=== PATIENT | female | born 1945 | race Caucasian/White ===

== ENCOUNTER → 2024-03-27 | Outpatient (CLI) | payer MEDICARE, SELFPAY ==
--- NOTE | 2024-03-27 | IMM_PTH ---
PATIENT: LYSSA THORNE LOC: [facility] U#:[id number] AGE/SX: 79/F ROOM: RE03/27/[address]: Dr. Clif Mena MD : 1945 BED: DIS: 03/27/2024 SPEC #: [id number] RECD: 04/01/24 09:28 STATUS: CLIF REQ #: [id number] CHANTELL: 03/27/24 00:[address]: Clif Mena DEPT: IMMUNOHISTOCHEMISTRY RECD BY: Perry Morales ENTERED: 04/01/24 09:30 SP TYPE: IMMUNO OTHR DR: Dr. Caden Lake MD Tissues: Left breast, NOS Procedures: CALPONIN-1 (add) CK5-6 (add) CK8 (add) E-CAD (add) HER2 MARIAELENA (add) KI-67 (add) P53 (add) WY (add) P40 (add) MOC-31 (add) ER (initial) PHYSICIAN & [address] [address] SPECIMEN INFORMATION: Tissue Source: Left breast tissue Clinical Info: Left breast mass Specimen Number: [id number] CPT code: 54171,53105f3,72877c8 METHODOLOGY: Deparaffinized sections of prefer/formalin-fixed tissue or PAP/DQ stained slides are incubated with monoclonal/polyclonal antibodies/oligonucleotide probes. Localization is made via biotin free immunoperoxidase method. Appropriate controls are performed and reacted as expected. Results on target cell population are indicated in the following table: RESULTS: ANTIBODY / CLONE RESULT P53 (DO-7) negative, null pattern Ki-67 (30-9) positive, low ~10% CK8 (96qtaoX44) positive CK5-6 (D5 & 1684) negative Calponin-1 (RD801Z) negative P40 (BC28) negative E-Cad (ECH-6) negative MOC-31 (4561) positive, weak MORPHOMETRIC ANALYSIS ER (clone 6F11) >95%, strong intensity WY (clone 16/1E2) >95%, strong intensity Her-2Neu (clone CB11) 2+ The test for HER 2 is performed on formalin-fixed paraffin embedded tissue using the CB11 mouse monoclonal antibody ([employer] [employer]). A 3+ staining pattern is interpreted as positive and is defined as a strong membranous staining involving the entire cell membrane in over 30% of invasive tumor cells. A similar weak staining pattern (2+) involving 10% of the tumor cells is interpreted as equivocal. HER 2 follow-up testing by FISH is recommended for all equivocal results. Reference: [place] [employer] of Clinical Oncology and the College of [place] [employer] (J. Clin. Oncol. 23: 118-145, 2007). Fixative Used: Formalin; Duration of Fixation: 9 Hrs; Sample Adequate: Yes INTERPRETATION: Left breast tissue, biopsy: Invasive lobular carcinoma, Provisional grade 1. Positive for estrogen receptors (favorable prognostic indicator). Positive for progesterone receptors (favorable prognostic indicator). Equivocal for overexpression of MRH1xmg. SJ/mr 04/01/2024 ADDENDUM ADDENDUM ADDENDUM ADDENDUM ADDENDUM ADDENDUM ADDENDUM ADDENDUM ADDENDUM ADDENDUM ADDENDUM ADDENDUM ADDENDUM ADDENDUM ADDENDUM ADDENDUM ADDENDUM ADDENDUM ADDENDUM ADDENDUM ADDENDUM 04/03/2024 14:16 ADDENDUM 04/03/2024 14:16 ADDENDUM 04/03/2024 14:16 ADDENDUM 04/03/2024 14:16 ADDENDUM 04/03/2024 14:16 IN SITU HYBRIDIZATION (LON) FOR HER2 Interpretation: Negative / Not Amplified HER2 : CEP-17 Ratio: 0.77 Average HER2 Signal: 1.9 Average CEP-17 Signal: 2.45 Number of Tumor Cells Scanned: 50 Interpretative Information: The INFORM HER2 Dual LON DNA Probe Cocktail assay is performed on formalin-fixed paraffin embedded tissue and determines HER2 gene status by detecting HER2 copies via silver in situ hybridization (SISH) and Chromosome 17 copies via chromogenic red in situ hybridization on tumor cells. A minimum of 20 cells representing > 10% of contiguous and homogeneous invasive tumor cells were analyzed. HER2 gene status is classified as Non-amplified (HER2/Chr17 ratio < 2.0) or Amplified (HER2/Chr17 ratio greater than or equal to 2.0). If the resulting HER2/Chr17 ratio falls within 1.8 - 2.2 (Borderline), retesting by FISH is recommended. Reference: Mike AC, Nancy GARCIA, Breann DG, et al: Recommendations for Human Epidermal Growth Factor Receptor 2 Testing in Breast Cancer: [place] Society of Clinical Oncology / College of [place] Clinical Practice Guideline Update. J Clin Oncol 31:1411-1940, 2013.
--- NOTE | 2024-03-27 10:30 | BRBX_PTH ---
PATIENT: LYSSA THORNE [facility] U[facility][id number] AGE/SX: 79/F ROOM: RE03/27/[address]: Dr. Clif Mena MD : 1945 BED: DIS: 03/27/2024 SPEC #: [id number] RECD: 03/27/24 11:05 STATUS: CLIF SEAMAN #: [id number] CHANTELL: 03/27/24 10:[address]: Clif Mena DEPT: SURGICAL PATHOLOGY RECD BY: Jazmín York ENTERED: 03/27/24 11:24 SP TYPE: BREAST BX OTHR DR: Dr. Caden Lake MD Tissues: Left breast, NOS Procedures: Surgery Specimen Level IV HEADER OPERATION: Left breast biopsy PRE-OP DIAGNOSIS: Left breast mass TISSUE SUBMITTED: Left breast tissue Ischemic Time: 1 minute Fixation Time: 9 hours MICROSCOPIC DIAGNOSIS Left breast, core biopsy: Invasive lobular carcinoma. See synoptic report below. AM/mr 03/29/2024 COMMENT Immunohistochemistry ([id number]) supports the above diagnosis. INVASIVE BREAST CANCER SUMMARY: Procedure: Needle core biopsy Specimen Laterality: left breast Tumor site: Left breast Histologic type: Invasive lobular carcinoma Provisional Histologic grade: 1 Tubule Differentiation Score: 3 Nuclear Pleomorphism Score: 1 Mitotic Rate Score: 1 Tumor Size ( greatest dimension): 9.5mm Ductal Carcinoma Insitu: Not identified Angiolymphatic Invasion: Not identified Microcalcifications: Not present Additional Findings: Minimal chronic inflammation Breast Marker Study: [id number] ER: positive (>95%, strong intensity). KY: positive (>95%, strong intensity). Her2: Equivocal (2+) Ki67: positive, low, ~10% [id number]: pending The above summary is in compliance with College of [place] Path[employer] (CAP) Cancer Protocols Checklist and [place] Joint Committee on Cancer (AJCC), Staging Manual, 8th Ed. Case has been reviewed in consultation with Dr. Sim who concurs with the above diagnosis. IDC:SJ MICROSCOPIC DESCRIPTION Slides are reviewed. GROSS DESCRIPTION Received in fixative is one container labeled with the patient's name and designated Left breast mass tissue. The specimen consists of multiple elongated fragments of jordan-yellow fibroadipose tissue that in aggregate measure 1.5 x 0.5 x 0.1 cm. The specimen is totally submitted in one cassette. Nahun 03/27/2024 TC:0 CPT:58959
== END | disposition home or self-care (01) ==
PROVIDERS: PCP Family Medicine; Referring Provider Surgery; Visit Provider Surgery
DX: N63.20 Unspecified lump in the left breast, unspecified quadrant (principal)
CPT/HCPCS: 81002; 88305; 88341; 88342

== ENCOUNTER → 2024-04-19 | Outpatient (CLI) | payer MEDICARE, SELFPAY ==
--- NOTE | 2024-04-19 13:14 | MRI_ITS ---
STUDY: BILATERAL BREAST MR WITHOUT AND WITH CONTRAST REASON FOR EXAM: Female, 79 years old. Lobular breast cancer. TECHNIQUE: Multi-sequence multi-echo imaging of both breasts was performed with a dedicated breast coil. T1-weighted and T2-weighted images were performed before the administration of contrast. T1-weighted images were also performed after the intravenous administration of 25 cc of Clariscan contrast. COMPARISON: Left breast ultrasound dated 03/14/2024 and bilateral diagnostic mammogram dated February 29, 2024 FINDINGS: RIGHT BREAST: Fatty replaced breast with minimal background enhancement. No abnormal enhancing masses or areas of non-mass enhancement in the right breast. LEFT BREAST: Fatty replaced breasts with minimal background enhancement. Large area of linear non-mass enhancement in the outer half of the left breast measuring approximately 8.9 cm x 3.5 cm x 6.2 cm. Posterior to this non-mass enhancement is a focal irregular area of enhancement measuring approximately 2.2 cm x 1.3 cm x 2.1 cm. Findings are compatible with tumor extending from the upper outer quadrant to the lower outer quadrant of the breast, characteristic of multicentric involvement. No enlarged or abnormal lymph nodes. No abnormality in the visualized regions of the chest or liver. MRI/Breast Bilateral W/O and W IMPRESSION: Large area of non mass enhancement in the left breast extending from the upper outer to the lower outer quadrant with an adjacent posterior irregular enhancing mass in the lower outer quadrant. Findings compatible with multicentric involvement of tumor, as outlined above. CATEGORY: BIRADS Category 6: Known Biopsy-Proven Malignancy - Appropriate Action Should Be Taken. A letter regarding these results will be sent to the patient by the facility within 30 days. Electronically Signed: Liu Wayne MD at 7:04 EDT ,
== END | disposition home or self-care (01) ==
LOC: MRI 13:10
PROVIDERS: PCP Family Medicine; Referring Provider Surgery; Visit Provider Surgery
DX: C50.919 Malignant neoplasm of unspecified site of unspecified female breast (principal); N63.42 Unspecified lump in left breast, subareolar
CPT/HCPCS: 77049; A9575; A4216; C8908

== ENCOUNTER 2024-05-29 12:23 | Observation (INO) | payer MEDICARE, SELFPAY ==
--- NOTE | 2024-05-16 13:36 | EKG12_ITS ---
Test Reason : PRE OP Blood Pressure : / mmHG Vent. Rate : 060 BPM Atrial Rate : 060 BPM P-R Int : 140 ms QRS Dur : 112 ms QT Int : 418 ms P-R-T Axes : 047 054 000 degrees QTc Int : 418 ms Normal sinus rhythm with sinus arrhythmia Normal ECG Confirmed by ANUJA YEH, SALUD ([id number]), newspaper editor managing ABDIRAHMAN MARSHALL ([id number]) on 05/17/2024 6:54:17 AM Referred By: Arianna Tellez Confirmed By:SKINNY LICEA MD
[2024-05-16 14:26] LABS: Hematocrit 45.4 % (37-47); Hemoglobin 14.6 g/dL (12.0-15.0); Mean Corp Hgb Conc 32.2 g/dL (32-36); Mean Corpuscular Hgb 31.3 pg (27.0-32.0); Mean Corpuscular Volume 97.4 fL (81-99); Mean Platelet Vol. 9.9 fl (6.2-12.0); Platelet Count 349 K/mm3 (150-450); RBC Distribution Width CV 13.1 % (11.6-14.6); RBC Distribution Width SD 46.6 fl (35.1-43.9); Red Blood Count 4.66 M/mm3 (4.2-5.4); White Blood Count 10.4 K/mm3 (4.4-11.0)
[2024-05-16 15:00] LABS: Hemoglobin A1c 5.7 % (3.8-5.6)
[2024-05-16 15:04] LABS: Anion Gap 12 (5-15); BUN 28 mg/dL (7-18); BUN/Creat Ratio 21.9 RATIO (10-20); Calcium,Total 11.6 mg/dL (8.5-10.1); Chloride 101 mmol/L (98-107); Creatinine, Serum 1.28 mg/dL (0.55-1.02); EST Glomerular Filtration Rate 43 mL/min (>60); Est Glom Filt Rate - Afr Amer 51 mL/min (>60); Glucose 94 mg/dL (74-106); Potassium 3.6 mmol/L (3.5-5.1); Sodium Level 139 mmol/L (136-145)
[2024-05-29] VITALS (16 sets, daily range): BP systolic 96–163; BP diastolic 43–86; PULSE 53–70; RESP 16–18; TEMP 36.2–36.9; O2SAT 88–98; BMI 42.7
--- NOTE | 2024-05-29 | IMM_PTH ---
PATIENT: LYSSA THORNE LOC: [facility] U#:[id number] AGE/SX: 79/F ROOM: [facility] [place] RE05/29/[address]: Dr. Clif Mena MD : 1945 BED: 1 DIS: 06/01/2024 SPEC #: [id number] RECD: 06/03/24 12:03 STATUS: CLIF JURGEN #: [id number] CHANTELL: 05/29/24 00:[address]: Clif Mena DEPT: IMMUNOHISTOCHEMISTRY RECD BY: Perry Morales ENTERED: 06/03/24 12:04 SP TYPE: IMMUNO OTHR DR: Dr. Caden Lake MD Tissues: A - Axillary lymph node, NOS B - Axillary lymph node, NOS C - Left breast, NOS Procedures: CK8 (initial) CK7 (add) E-CAD (add) Pankeratin (initial) Pankeratin (add) CK7 (initial) PHYSICIAN & [address] [address] SPECIMEN INFORMATION: Tissue Source: A- Left axillary sentinel lymph node, B- Additional axillary lymph node, C- Left breast Clinical Info: Lobular breast cancer Specimen Number: [id number] A, B, C CPT code: 84608g6,69378x66 METHODOLOGY: Deparaffinized sections of prefer/formalin-fixed tissue or PAP/DQ stained slides are incubated with monoclonal/polyclonal antibodies/oligonucleotide probes. Localization is made via biotin free immunoperoxidase method. Appropriate controls are performed and reacted as expected. Results on target cell population are indicated in the following table: RESULTS: ANTIBODY / CLONE RESULT Block A 1 AE1-3 (AE1/AE3/PCK26) negative CK7 (OV-TL12/30) negative Block A 2 AE1-3 (AE1/AE3/PCK26) positive CK7 (OV-TL12/30) positive Block A3 AE1-3 (AE1/AE3/PCK26) negative CK7 (OV-TL12/30) negative Block A4 AE1-3 (AE1/AE3/PCK26) positive CK7 (OV-TL12/30) positive Block A 5 AE1-3 (AE1/AE3/PCK26) negative CK7 (OV-TL12/30) negative Block A 6 AE1-3 (AE1/AE3/PCK26) negative CK7 (OV-TL12/30) negative Block A7 AE1-3 (AE1/AE3/PCK26) positive CK7 (OV-TL12/30) positive Block A8 AE1-3 (AE1/AE3/PCK26) positive CK7 (OV-TL12/30) positive Block A 9 AE1-3 (AE1/AE3/PCK26) positive CK7 (OV-TL12/30) positive Block A 10 AE1-3 (AE1/AE3/PCK26) negative CK7 (OV-TL12/30) negative Block A 11 AE1-3 (AE1/AE3/PCK26) positive CK7 (OV-TL12/30) positive Block A 12 AE1-3 (AE1/AE3/PCK26) negative CK7 (OV-TL12/30) negative Block A 13 AE1-3 (AE1/AE3/PCK26) negative CK7 (OV-TL12/30) negative Block A 14 AE1-3 (AE1/AE3/PCK26) negative CK7 (OV-TL12/30) negative Block A 15 AE1-3 (AE1/AE3/PCK26) negative CK7 (OV-TL12/30) negative Block B 1 AE1-3 (AE1/AE3/PCK26) negative CK7 (OV-TL12/30) negative Block B2 AE1-3 (AE1/AE3/PCK26) negative CK7 (OV-TL12/30) negative Block B3 AE1-3 (AE1/AE3/PCK26) negative CK7 (OV-TL12/30) negative Block B 4 AE1-3 (AE1/AE3/PCK26) negative CK7 (OV-TL12/30) negative Block B 5 AE1-3 (AE1/AE3/PCK26) negative CK7 (OV-TL12/30) negative Block C 1 CK8 (03otlvP75) positive AE1-3 (AE1/AE3/PCK26) positive E-Cad (ECH-6) negative Block C 5 AE1-3 (AE1/AE3/PCK26) negative CK7 (OV-TL12/30) negative Block C 6 AE1-3 (AE1/AE3/PCK26) negative CK7 (OV-TL12/30) negative Block C 7 AE1-3 (AE1/AE3/PCK26) negative CK7 (OV-TL12/30) negative These tests were developed and their performance characteristics determined by [facility]. They may not have been cleared or approved by the U.S. Food and Drug Administration. The FDA has determined that such clearance or approval is not necessary. The above immunohistochemical/dualISH markers are ordered and reviewed by the Pathologist. INTERPRETATION: A. Left axillary lymph node, core biopsy: One out of two lymph nodes, positive for macrometastatic carcinoma. B. Additional axillary lymph node, core biopsy: One out of one lymph node, negative for carcinoma. C. Left breast, mastectomy: One out of one lymph node, negative for carcinoma. Focal Paget's diseased nipple (tumor cells in epidermis). Case has been reviewed in consultation with Dr. Sim who concurs with the above diagnosis. IDC:JANNA BHATTI/ 06/05/2024
--- NOTE | 2024-05-29 07:48 | NM_ITS ---
PROCEDURE: NUCLEAR MEDICINE Injection Beech Bottom Node - LEFT breast(s). REASON FOR EXAM: Female, 79 years old. Left lobular breast carcinoma. TECHNIQUE: Beech Bottom node localization using radionuclide methods of the LEFT breast(s) was performed following subcutaneous administration of 1.2 mCi of of sulfur colloid Tc-99m. COMPARISON STUDIES : NM - None. CR - Not available for review at this time. CT - Not available for review at this time. MR - Not available for review at this time. US - Not available for review at this time. FINDINGS: 1.2 mCi of technetium labeled sulfur colloid was injected subcutaneously in the periareolar region of the left breast for sentinel node imaging. NM/Lymph Node Injection Only IMPRESSION: Subcutaneous injection of 1.2 mCi of technetium labeled sulfur colloid in 4 equal aliquots in the left periareolar region. Electronically Signed: Gustavo Rachel MD at 9:14 EDT ,
[2024-05-29] MEDS: Lactated Ringers 1,000 ML 15 ML IV (08:20)
[2024-05-29 08:44] LABS: Bedside Glucose 123 mg/dL (74-106)
--- NOTE | 2024-05-29 08:46 | PCM.PRE.AN2 ---
ASA Classification* ASA Classification ASA Classification: 3 Assessment & Plan Anesthesia* Anesthesia Assessment Anesthesia Assessment: Discussed sedation and/or anesthesia options, risks, benefits, and alternatives with patient/parents/legal guardian/POA. Questions invited. The patient/parents/legal guardian/POA seems to understand and agrees to proceed with anesthesia plan. Reviewed the physical assessment, medical history, allergy history and patient home medications list prior to surgery/procedure/anesthetic and documented any changes. Performed airway and anesthesia risk assessments. Anesthesia Type Anesthesia Type: General (see written pre anesthesia record for full assessment) Anesthesia Focused Assessment* Temperature: 97.6 F Pulse Rate: 70 Blood Pressure: 153/63 Respiratory Rate: 16 Pulse Ox: 98 Airway Assessment Mouth opens: >3 cm Mallampati Score: II Focused Labs Anesthesia Preop lab: CBC WBC 10.4 K/mm3 (4.4-11.0) 05/16/24 13:38 RBC 4.66 M/mm3 (4.2-5.4) 05/16/24 13:38 Hgb 14.6 g/dL (12.0-15.0) 05/16/24 13:38 Hct 45.4 % (37-47) 05/16/24 13:38 Plt Count 349 K/mm3 (150-450) 05/16/24 13:38 CHEMISTRY Potassium 3.6 mmol/L (3.5-5.1) 05/16/24 13:38 Sodium 139 mmol/L (136-145) 05/16/24 13:38 Magnesium 1.9 mg/dL (1.6-2.6) 10/13/21 06:05 Phosphorus 1.8 mg/dL (2.5-4.9) L 10/06/21 06:50 BUN 28 mg/dL (7-18) H 05/16/24 13:38 Creatinine 1.28 mg/dL (0.55-1.02) H 05/16/24 13:38 Glucose 94 mg/dL (74-106) 05/16/24 13:38 POC Glucose 123 mg/dL (74-106) H 05/29/24 08:02 TSH 2.600 uIU/mL (0.358-3.740) 05/16/24 13:38 COAG Pre-Assessment Diagnosis/Proposed Procedure Planned Operative Procedure(s): (L) Left Mastectomy w/SLN bx, blue dye & radiotracer, poss ax dissection Anesthesia History Anesthesia History - litigation manager: Anesthesia History - litigation manager Hx Hospitalization No 05/15/24 13:09 Any Problems With Anesthesia No 05/15/24 13:09 Cholinesterase deficiency No 05/15/24 13:09 You/Your Family Experience No 05/15/24 13:09 fever (hyperthermia) with Relationship Recent Exposure to Contagious No 05/29/24 08:13 Disease Does patient have nerve No 05/15/24 13:09 stimulator Patient instructed to have device shut off --Does patient have Pacemaker No 05/29/24 08:13 or ICD? When Was Last Pacemaker Check QUESTION #4 FULL TEXT: You/Your Family Experience fever (hyperthermia) with Anesthesia Last Oral Intake Last Oral intake: Last Oral Intake NPO since 21:30 05/29/24 08:13 Meds taken in AM with sips of Yes 05/29/24 08:13 water? Meds patient instructed to see chart 05/29/24 08:13 take am of surgery PONV PONV - litigation manager: PONV - litigation manager Female Yes 05/15/24 13:09 HX of Motion Sickness No 05/15/24 13:09 HX of N/V After Surgery No 05/15/24 13:09 Non-Smoker Yes 05/15/24 13:09 Duration of Surgery greater Yes 05/15/24 13:09 than 60 minutes Number of Risk Factors 3 05/15/24 13:09 PONV Score Moderate Risk 05/15/24 13:09 Height & Weight Height & Weight: Anesthesia: Height & Weight Height 5 ft 7 in 05/29/24 08:13 Weight: 123.7 kg 05/29/24 08:13 Body Mass Index (BMI) 42.7 05/29/24 08:13 Respiratory Assessment Respiratory Assessment - litigation manager: Respiratory Tract Infection Hx - litigation manager Hx Respiratory Tract Infection No 05/15/24 13:09 STOP Sleep Apnea STOP Sleep Apnea - litigation manager: STOP Sleep Apnea - litigation manager Hx Hypertension Yes: CONTROLLED WITH MED 05/15/24 13:09 Hx Sleep Apnea Yes 05/15/24 13:09 CPAP Yes 05/15/24 13:09 BIPAP No 05/15/24 13:09 Do you snore loudly (louder than talking or can be heard Do you often feel tired/ fatigued/ sleepy during daytime? Has anyone observed you stop breathing during sleep? STOP Results Positive 05/15/24 13:09 QUESTION #5 FULL TEXT : Do you snore loudly (louder than talking or can be heard through closed doors)? Tobacco Use History Tobacco Use History - litigation manager: Tobacco Use History - litigation manager Tobacco Use Smoking Status Never smoker 05/15/24 13:09 Hx Tobacco Use No 05/15/24 13:09 Years Smoking Packs Smoked per Day Smoking Cessation Date was within the last 15 years Hx Smoking Cessation Date Hx Smoking Cessation Counseling Hematologic Medial History Hematologic Hx - litigation manager: Hematologic Medical Hx - technical documentation specialist Hx of Blood Transfusion No 05/15/24 13:09 Hx of Transfusion in last 3 No 05/15/24 13:09 Months Date of Last Transfusion (if within last 3 months) Ever experience any problems No 05/15/24 13:09 with transfusion(s)? Specify any problems Hx of Preganancy in last 3 N/A 05/15/24 13:09 Months Nurse Filling Out Transfusion NBUCHER 05/15/24 13:09 & Questions: Date: 05/15/24 05/15/24 13:09 Time: 13:14 05/15/24 13:09 Patient unable to answer at this time (ie. confused, unrespo /Reproduction History /Reproductive History - litigation manager: /Reproductive Hx- litigation manager Hx Now No 05/15/24 13:09 Gestational Age (in weeks): EDC: Hx Hx Para Hx Section SAB No 05/15/24 13:09 Active Medications Active Medications: Current Medications Generic Name Dose Route Start Last Admin Trade Name Freq PRN Reason Stop Dose Admin Cefazolin Sodium 3 gm/ Sodium 115 mls @ 150 mls/hr 05/29/24 10:00 Chloride IV 05/29/24 10:45 PREOP ONE Lactated Ringer's 1,000 mls @ 15 mls/hr 05/29/24 07:45 05/29/24 08:20 IV 15 mls/hr .Q48H SHARAN Administration PFSH Medical History Cardiology follow-up encounter Post-menopausal Cancer Wears glasses Ambulates with cane Arthritis CPAP (continuous positive airway pressure) dependence Sleep apnea Non-smoker History of stress test History of echocardiogram History of atrial fibrillation History of kidney stones Lobular breast cancer Diabetes Thyroid disease HTN (hypertension) Heart murmur TIA (transient ischemic attack) Home Medications ?Medication ?Instructions ?Recorded ?Last Taken ?Type atorvastatin 20 mg tablet 20 mg PO DAILY 11/09/15 05/28/24 History cholecalciferol (vitamin D3) 25 1,000 unit PO MOTUWETHSA 11/09/15 05/28/24 History mcg (1,000 unit) tablet (Vitamin D3) clopidogrel 75 mg tablet 75 mg PO DAILY 11/09/15 05/23/24 History levothyroxine 75 mcg tablet 75 mcg PO DAILY 11/09/15 05/29/24 History (Levoxyl) metoprolol tartrate 25 mg tablet 25 mg PO BID #60 TABLETS 11/20/15 05/29/24 Rx amlodipine 5 mg tablet 5 mg PO DAILY 10/10/16 05/29/24 History cinacalcet 90 mg tablet 90 mg PO DAILY 03/27/24 05/28/24 History multivitamin 1 tab PO DAILY 03/27/24 05/28/24 History metformin 1,000 mg tablet 1,000 mg PO DAILY 05/15/24 05/28/24 History Allergy/AdvReac Type Severity Reaction Status Date / Time latex Allergy Unknown Verified 05/29/24 08:04 Sulfa (Sulfonamide Allergy Unknown Verified 05/29/24 08:04 Antibiotics) Family History Brother Diabetes CVA (cerebral vascular accident) Father Heart disease Hypertension Mother Heart disease Hypertension Surgical History History of appendectomy History of cystoscopy History of cataract surgery History of knee replacement Social History Smoking Status: Never smoker alcohol intake: current alcohol intake frequency: holidays/special occasions only Review of Systems (Anesthesia) ROS Narrative System reviewed and no additional complaints, except as documented.
--- NOTE | 2024-05-29 08:54 | PCM.HP.BLA ---
History and Physical Date of Admission: 05/29/24 Intake Vital Signs 03/27/2410:27 Height 5 ft 7 in Weight: 276 lb BMI 43.2 BP 134/68 H Blood Pressure Location Rt brachial Position Sitting Respiration 17 Pulse 80 Pulse Source Monitor Temp 97.6 F L Temp Source Temporal Pulse Oximetry (%) 97 Oxygen Delivery Method room air Intake Visit Reasons: MRI RESULTS DOS 04/19 Chief Complaint: mri results Wine Bottle Inspector Required: No Is patient in pain?: No Allergies latex Allergy (Verified 05/07/24 13:37) UnknownSulfa (Sulfonamide Antibiotics) Allergy (Verified 05/07/24 13:37) Unknown Medications ?Medication ?Instructions ?Recorded ?Confirmed ?Type atorvastatin 20 mg tablet 20 mg PO DAILY 11/09/15 05/07/24 History cholecalciferol (vitamin D3) 25 1,000 unit PO DAILY 11/09/15 05/07/24 History mcg (1,000 unit) tablet (Vitamin D3) clopidogrel 75 mg tablet 75 mg PO DAILY 11/09/15 05/07/24 History furosemide 20 mg tablet 20 mg PO DAILY 11/09/15 05/07/24 History levothyroxine 75 mcg tablet 75 mcg PO DAILY 11/09/15 05/07/24 History (Levoxyl) metformin 1,000 mg tablet 1,000 mg PO BIDCM #60 TABLETS 11/19/15 05/07/24 Rx metoprolol tartrate 25 mg tablet 25 mg PO BID #60 TABLETS 11/20/15 05/07/24 Rx amlodipine 5 mg tablet 5 mg PO DAILY 10/10/16 05/07/24 History cinacalcet 90 mg tablet 90 mg PO DAILY 03/27/24 05/07/24 History multivitamin 1 tab PO DAILY 03/27/24 05/07/24 History Have you fallen in the past year?: No PFSH Medical History Lobular breast cancer Diabetes Thyroid disease HTN (hypertension) Heart murmur TIA (transient ischemic attack) Surgical History History of cataract surgery History of knee replacement Family History Brother Diabetes CVA (cerebral vascular accident)Father Heart disease HypertensionMother Heart disease Hypertension Social History Smoking Status: Never smoker alcohol intake: current alcohol intake frequency: holidays/special occasions only HPI HPI HPI: Patient is an 79-year-old female here for discussion of left breast cancer. It was lobular in nature so she was sent for MRI which confirmed that the entire outer quadrant of the upper and lower breast were involved. Exam Const General: cooperative Orientation: alert and oriented x3 HENMT Head: normal to inspection Neck Neck: normal visual inspection and full ROM Chest Breast Palpation: Yes breast mass lrb: Left Resp Effort & Inspection: normal respiratory effort Auscultation: clear to auscultation bilaterally Cardio Rate: regular rate Rhythm: regular rhythm GI Inspection: non-distended Palpation: soft and nontender Skin General: no rashes or lesions noted Neuro General: patient alert and patient oriented x3 Extrem General: full ROM Psych Appearance: grossly normal Mental Status: mental status grossly normal Assessment and Plan Assessment and Plan (1) Lobular breast cancer: Status: Acute Plan: The patient has a large lobular breast cancer of the left breast that occupies the left upper quadrant and left lower quadrant. I sent her for MRI after this came back as lobular and it did confirm that the entire lateral portion of the breast was involved. I discussed mastectomy with her. I discussed full mastectomy and did offer her reconstructive consult but she does not want any reconstruction. I discussed sentinel lymph node biopsy on that side and possible axillary dissection. I discussed postoperative care as well as drain placement. I discussed postoperative chemotherapy and oncology consultation and possible radiation. Patient understands all the risks including but not limited to bleeding, infection, injury other organs, nerve injury, lymphedema, need for further surgery. Patient will hold her Plavix 5 days before surgery. Clif Mena MD Pager: [facility] [address] [place] [address], [address] [place] [address] Office: I have examined the patient and the H&P has been reviewed. There are no clinical changes since date of exam.
[2024-05-29] MEDS: Cefazolin 3 GM in 0.9% Normal Saline (100mL Bag) 100 ML IV (10:08)
[2024-05-29] MEDS: Isosulfan Blue 1% 5 ML Vial (10:23)
[2024-05-29] MEDS: 0.9% Normal Saline (Pres. free 10 ML Vial (10:24)
--- NOTE | 2024-05-29 11:00 | AXNB_PTH ---
PATIENT: LYSSA THORNE LOC: MS3 U#:[id number] AGE/SX: 79/F [place] [facility] [place]: Dr. Clif Mena MD : 1945 BED: 1 DIS: 06/01/2024 SPEC #: [id number] RECD: 05/29/24 11:39 STATUS: CLIF SEAMAN #: [id number] CHANTELL: 05/29/24 11:[address]: Clif Mena DEPT: SURGICAL PATHOLOGY RECD BY: Perry Morales ENTERED: 05/29/24 11:39 SP TYPE: AX NODE BX OTHR DR: Dr. Caden Lake MD Tissues: A - Axillary lymph node, NOS B - Axillary lymph node, NOS C - Left breast, NOS Procedures: Frozen Section (charge) Frozen Section Add'l ([facility]) Surgery Specimen Level IV Surgery Specimen Level HEADER OPERATION: Left mastectomy with sentinel lymph node biopsy, blue dye and radiotracer PRE-OP DIAGNOSIS: Lobular breast cancer TISSUE SUBMITTED: A- Left breast sentinel/axillary lymph node biopsy, B- Additional axillary lymph node, C- Left breast (short stitch, superior, long stitch, lateral) Ischemic Time: 1 minute Fixation Time: 8 hours FROZEN SECTION DIAGNOSIS A. Left axillary sentinel lymph nodes, biopsy: Carnallite Plant Operator sections of two lymph nodes, negative for carcinoma. B. Additional left axillary sentinel lymph node, biopsy: Carnallite Plant Operator section of lymph node, negative for carcinoma. [facility] 05/29/2024 MICROSCOPIC DIAGNOSIS A. Left breast sentinel lymph node, biopsy: One out of two lymph nodes, positive for macromestastatic carcinoma. See comment. B. Additional left axillary lymph node, biopsy: One out of one lymph node, negative for carcinoma. C. Left breast, mastectomy: Invasive lobular carcinoma. See cancer template below. [facility] 06/05/2024 COMMENT A. Immunohistochemistry ([id number]) supports the above diagnosis and reveals the metastatic focus to measure 22.0 x 11.0mm in greatest dimension. There is a focus of extra reza extension of tumor measuring 1.0mm in greatest dimension. B. Immunohistochemistry ([id number]) supports the above diagnosis. C. Immunohistochemistry ([id number]) supports the above diagnosis. BREAST CANCER SUMMARY Procedure: Radical Mastectomy Specimen Type: Radical Mastectomy Size: 26.0 x 16.0 x 8.0cm Laterality: Left breast Tumor size: 8.0 x 6.0 x 5.0cm Focality: Single focus of carcinoma Histologic type: Invasive lobular carcinoma. Histologic grade (Tiffani grade): Glandular/tubular differentiation score: 3 Nuclear pleomorphism score: 3 Mitotic count score: 2 Overall grade: 3 (score of 8) Lymph vascular invasion: Not identified Ductal Carcinoma In Situ: Not identified Lobular Carcinoma In Situ: Not present Tumor extension: Skin away from nipple: Free of carcinoma Nipple skin: Paget's disease (infiltrating lobular carcinoma) Skeletal muscle: Not identified Margins Involved by Invasive Carcinoma: None Distance from closest surgical margin: 1.0cm from inferior margin. Lymph Nodes: Number of sentinel lymph nodes examined: 3 Total number of lymph nodes examined: 4 ( 3-sentinel; 1 - axillary tail of mastectomy) Number of lymph nodes positive for macro metastatic carcinoma: 1 (22.0mm x 11.0mm with 1.0mm extra reza extension) See specimen A Microcalcifications: Not identified Treatment Effect: Unknown Additional Pathologic Findings: Fibrocystic change, seborrheic keratoses of skin and Paget's disease of nipple skin (infiltration by lobular carcinoma). Ancillary Studies: Previously performed on same tumor ([id number]) ER: positive (>95%, strong intensity) GA: positive (>95%, strong intensity) [id number]: Equivocal (2+) by immunohistochemistry Her2 by dual J Carlos: Negative (0.77) Clinical History: Mass of breast PATHOLOGIC STAGE: pT3 N1a Mx NOTE: The tumor present in the nipple dermis contains higher Grade nuclei (grade 3). The remainder of the carcinoma in the breast ranges from Grade 1 to Grade 2. The above summary is in compliance with [employer] [place] [employer] (CAP) Cancer Protocol Checklist and [place] Joint Committee on Cancer (AJCC) Staging Manual, 8th Ed. Case has been reviewed in consultation with Dr. Sim who concurs with the above diagnosis. IDC:[email or web address] MICROSCOPIC DESCRIPTION Slides are reviewed. GROSS DESCRIPTION A. Received fresh for frozen section consultation labeled with the patient's name is a specimen designated Left breast sentinel lymph node. The specimen consists of two ovoid fragments of jordan yellow fibrofatty tissue. The smaller fragment measures 2.0 x 2.0 x 1.0cm and the larger fragment measures 7.5 x 3.0 x 1.7cm. Serial sections of the nodule does not reveal mass lesions. Carnallite Plant Operator sections from both nodules are submitted for frozen section consultation in two blocks. A support representative prep-touch smear is prepared from the lymph nodes. The remainder of the specimen is submitted in fifteen cassettes as follows: cassettes 1 through 14, larger lymph node and cassette 15, bisected remainder of second lymph node. / 05/30/2024 B. Received fresh for frozen section consultation labeled with the patient's name is a specimen designated Additional axillary lymph node. The specimen consists of a single ovoid fragment of jordan-yellow fibro fatty tissue measuring 3.0 x 3.0 x 1.8cm. Serial sections do not reveal any mass lesions. A support representative section is submitted for frozen section consultation in one block. The remainder of the specimen is submitted in five cassettes. / 05/30/2024 C. Received in fixative is one container labeled with the patient's name and designated Left breast. The specimen consists of a mastectomy specimen measuring 26.0 x 16.0 x 8.0cm. Portion of axillary tail is also noted measuring 6.0 x 6.0 x 2.0cm. A tab-brown lesion is noted at one edge measuring 1.0 x 0.2cm. Also present in the container is a detached piece of skin with underlying tissue measuring 9.5 x 3.5cm and up to 2.0cm in thickness. Also present in the container is a piece of skin with a raised jordan-pink lesion measuring 0.7 x 0.5 x 0.3cm and the raised lesion measuring 0.4 x 0.4cm. The breast tissue does not show any skin lesions. Nipple measures 1.0cm in greatest dimension. The specimen is inked as follows: posterior - black, superior - blue, inferior - green, medial - red and lateral - orange. Posterior margin shows few skeletal muscle tissue. A nodule consistent with lymph node is noted in the axillary tail measuring 2.0cm in greatest dimension. Sections of the lymph node reveal fatty cut surfaces. More dictation will follow after additional fixation. / 05/29/2024 Skin overlying the breast tissue shows three raised keratotic lesions measuring 0.5, 2.0 and 6.5cm in greatest dimensions. This lesion does not appear to be invading into the underlying dermis. Sections of the breast tissue reveal a large, indurated mass measuring 8.0 x 6.0 x 5.0cm. This mass is very close to the overlying skin piece. However, it does not appear to be involved in the overlying skin and is 1.0cm away from the closest inferior margin. Section of the rest of the breast tissue reveal jordan-yellow adipose cut surfaces mixed with jordan-white fibrous areas. Carnallite Plant Operator sections are submitted in sixteen cassettes as follows: 1-nipple, entirely submitted, 2- skin lesion- smaller and intermediate sized overlying on the skin piece, 3- support representative section of skin lesion of overlying skin on breast tissue, 4- skin lesion on the detached piece of underlying tissue and smallest piece of skin with smallest lesion, bisected, 5-7- one lymph node axillary tail, serially sectioned, entirely submitted, 8- perpendicular medial, lateral and inferior margin, 9- perpendicular posterior and superior margin and skin overlying tumor, 10-13- tumor, 14-16- support representative sections away from the tumor. Sections are submitted after additional fixation. JANNA. 05/30/2024 TC:0 CPT:[id number]
[2024-05-29] MEDS: Bupivacaine 0.25% 30 ML Vial (11:43)
--- NOTE | 2024-05-29 12:06 | PCM.POST.ANE ---
Anesthesia: Postop Eval I Current Vital Signs Temperature: 97.1 F Pulse Rate: 68 Blood Pressure: 160/86 Respiratory Rate: 18 Pulse Ox: 95 Oxygen Delivery Method: Room Air Assessment Airway patent: Yes Spontaneous unlabored respirations: Yes Mental status: Awake and Calm nausea: No Vomiting: No Anesthesia Complication: No Fluid Hydration Crystalloid volume administer (ml): 800 Total IV fluid infused: 800 Progress Note Post-operative progress note: C&DB ENC'D; DENIES PAIN; INCREASED HOB 30DEGREES Anesthesia document: Postop Eval 1 completed: Yes
--- NOTE | 2024-05-29 12:07 | OP.PCM_ITS ---
Report of Operation Date of Procedure: 05/29/24 Pre-Operative Diagnosis: Left breast cancer Post-Operative Diagnosis: Left breast cancer Surgery/Procedure Performed:: 1. Left mastectomy 2. Left axillary sentinel lymph node biopsy Type of Anesthesia: General/Regional Specimen's removed: 1. Left breast 2. Left axillary sentinel lymph nodes Drains: IGGY to bulb suction Estimated Blood Loss (mL): 20 Description of Procedure: Patient was brought back to the operating room and general anesthesia was induced. The left breast was prepped and then blue dye was injected superior to the tumor. 5 cc of saline were also injected and then the breast was massaged. Next the breast and axilla were prepped and draped in the usual sterile fashion. A curvilinear incision was marked superior and inferior to the breast. The lateral part of the incision was incised with a scalpel. Flaps were created using electrocautery. Next the dissection was carried toward the left axilla. The axillary fascia was entered. There were 3 palpable lymph nodes that were suspicious in the axilla. All 3 of these were removed. One of them did light up with radioactivity and blue dye. There was no further radioactive material in the axilla and there was no further blue dye that was visible. There were no further palpable lymph nodes. Electrocautery was used sparingly for hemostasis as well as clips. Next these lymph nodes were sent for pathology. Frozen section revealed no cancer. Next the breast flaps were created more medially in the same fashion using electrocautery. Next the breast was taken off of the pectoral muscle and the pectoral fascia. including the breast was marked and sent for pathology. Electrocautery was used to maintain hemostasis. The area was irrigated and dried and then a drain was placed through a lateral stab incision. Drain was sutured to the skin using 3-0 nylon. After was in adequate position the skin was closed with interrupted 3-0 Vicryl sutures and then a running 4-0 Monocryl suture. Dermabond was applied. Surgical bra with fluffs was placed over the chest wall and the patient was awoken and brought in to PACU in stable condition. Synoptic Portion: Element Response Options Operation performed with curative intent. Yes Tracer(s) used to identify sentinel nodes in the upfront surgery (non-neoa djuvant) setting (select all that apply). Radioactive tracer and blue dye Tracer(s) used to identify sentinel nodes in the neoadjuvant setting (select all that apply). N/A All nodes (colored or non-colored) present at the end of a dye-filled lymphatic channel were removed. Yes All significantly radioactive nodes were removed. Yes All palpably suspicious nodes were removed. Yes Biopsy-proven positive nodes marked with clips prior to chemotherapy were identified and removed. N/A Admit VTE Documentation VTE Mechan Device Prophylaxis: SCD's
--- NOTE | 2024-05-29 12:59 | POSTOPAN2_ITS ---
Anesthesia Postop Eval I Sum Postop Eval Completion status Anesthesia document: Postop Eval 1 completed: Yes Anesthesia Postop Eval I Summary Anesthesia Postop Eval I Summary: Anesthesia Postop Eval I: Assessment Summary Airway patent Yes 05/29/24 12:07 CHARGE MASTER SPECIALIST.SCHR Spontaneous unlabored Yes 05/29/24 12:07 CHARGE MASTER SPECIALIST.SCHR respirations Mental status Awake,Calm 05/29/24 12:07 CHARGE MASTER SPECIALIST.SCHR nausea No 05/29/24 12:07 CHARGE MASTER SPECIALIST.SCHR Vomiting No 05/29/24 12:07 CHARGE MASTER SPECIALIST.SCHR Anesthesia Postop Eval I: Fluid Summary Crystalloid volume administer 800 05/29/24 12:07 CHARGE MASTER SPECIALIST.SCHR (ml) Colloids volume administered ( ml) Blood Product volume administered (ml) Total IV fluid infused 800 05/29/24 12:07 CHARGE MASTER SPECIALIST.SCHR Anesthesia Postop Eval I: Summary Notes Anesthesia Complication No 05/29/24 12:07 [facility] Anesthesia Complication Comment: Post-operative progress note C&DB ENC'D; DENIES 05/29/24 12:07 CHARGE MASTER SPECIALIST.SCHR PAIN; INCREASED HOB 30DEGREES Anesthesia: Postop Eval II Evaluation Mental status: Awake Pain Level: 0 nausea: No Vomiting: No
--- NOTE | 2024-05-29 12:59 | PCM.POSTANE2 ---
Anesthesia Postop Eval I Sum Postop Eval Completion status Anesthesia document: Postop Eval 1 completed: Yes Anesthesia Postop Eval I Summary Anesthesia Postop Eval I Summary: Anesthesia Postop Eval I: Assessment Summary Airway patent Yes 05/29/24 12:07 ENVIRONMENT FRIENDLY LANDSCAPE DESIGNER.SCHR Spontaneous unlabored Yes 05/29/24 12:07 ENVIRONMENT FRIENDLY LANDSCAPE DESIGNER.SCHR respirations Mental status Awake,Calm 05/29/24 12:07 ENVIRONMENT FRIENDLY LANDSCAPE DESIGNER.SCHR nausea No 05/29/24 12:07 ENVIRONMENT FRIENDLY LANDSCAPE DESIGNER.SCHR Vomiting No 05/29/24 12:07 ENVIRONMENT FRIENDLY LANDSCAPE DESIGNER.SCHR Anesthesia Postop Eval I: Fluid Summary Crystalloid volume administer 800 05/29/24 12:07 ENVIRONMENT FRIENDLY LANDSCAPE DESIGNER.SCHR (ml) Colloids volume administered ( ml) Blood Product volume administered (ml) Total IV fluid infused 800 05/29/24 12:07 ENVIRONMENT FRIENDLY LANDSCAPE DESIGNER.SCHR Anesthesia Postop Eval I: Summary Notes Anesthesia Complication No 05/29/24 12:07 ENVIRONMENT FRIENDLY LANDSCAPE DESIGNER.[facility] Anesthesia Complication Comment: Post-operative progress note C&DB ENC'D; DENIES 05/29/24 12:07 ENVIRONMENT FRIENDLY LANDSCAPE DESIGNER.SCHR PAIN; INCREASED HOB 30DEGREES Anesthesia: Postop Eval II Evaluation Mental status: Awake Pain Level: 0 nausea: No Vomiting: No
[2024-05-29] MEDS: 0.9% Normal Saline (1000mL) 1,000 ML 100 ML IV ×2 (15:40→20:22)
[2024-05-29 20:59] LABS: Hematocrit 33.2 % (37-47); Hemoglobin 10.5 g/dL (12.0-15.0)
[2024-05-29] MEDS: Atorvastatin Calcium 20 MG Tablet PO (21:41)
[2024-05-29] MEDS: Metoprolol Tartrate 25 MG Tablet PO (21:42)
[2024-05-29] MEDS: Acetaminophen 325 MG Tablet 650 MG PO (21:43)
[2024-05-30] VITALS (10 sets, daily range): BP systolic 101–125; BP diastolic 45–58; PULSE 52–65; RESP 16–18; TEMP 36.6–37.1; O2SAT 94–100
[2024-05-30] MEDS: Levothyroxine 75 MCG Tablet PO (06:14)
[2024-05-30 07:06] LABS: Absolute Lymphocyte Count 1.39 X10^3/uL (0.83-4.51); Absolute Neutrophil Count 10.4 X10^3/uL (2.0-7.7); Basophil# 0.02 X10^3/uL; Basophil% 0.2 % (0-1); Hematocrit 29.3 % (37-47); Hemoglobin 9.3 g/dL (12.0-15.0); Lymphocyte # 1.39 X10^3/ul (0.83-4.51); Lymphocyte % 10.8 % (19-41); Mean Corp Hgb Conc 31.7 g/dL (32-36); Mean Corpuscular Hgb 31.8 pg (27.0-32.0); Mean Corpuscular Volume 100.3 fL (81-99); Mean Platelet Vol. 10.6 fl (6.2-12.0); Monocyte% 8.5 % (0-10); NRBC Flagged by Analyzer 0 % (0-5); Neutrophil # 10.35 X10^3/uL (2.7-7.7); Platelet Count 260 K/mm3 (150-450); RBC Distribution Width CV 13.3 % (11.6-14.6); RBC Distribution Width SD 49.1 fl (35.1-43.9); Red Blood Count 2.92 M/mm3 (4.2-5.4); White Blood Count 12.9 K/mm3 (4.4-11.0)
[2024-05-30] MEDS: 0.9% Normal Saline (1000mL) 1,000 ML 100 ML IV ×2 (08:03→18:19)
[2024-05-30 08:22] LABS: Anion Gap 6 (5-15); BUN 38 mg/dL (7-18); Calcium,Total 9.5 mg/dL (8.5-10.1); Chloride 111 mmol/L (98-107); Creatinine, Serum 1.31 mg/dL (0.55-1.02); EST Glomerular Filtration Rate 41 mL/min (>60); Est Glom Filt Rate - Afr Amer 50 mL/min (>60); Estimated Creatinine Clearance 45.96 ml/min; Glucose 166 mg/dL (74-106); Potassium 4.6 mmol/L (3.5-5.1); Sodium Level 138 mmol/L (136-145)
[2024-05-30] MEDS: metFORMIN HCl 1,000 MG Tablet 1000 MG PO (08:27)
[2024-05-30] MEDS: Metoprolol Tartrate 25 MG Tablet PO (10:26)
[2024-05-30] MEDS: amLODIPine 5 MG Tablet PO (10:27)
[2024-05-30] MEDS: Cinacalcet HCl 30 MG Tablet 90 MG PO (10:27)
[2024-05-30] MEDS: Acetaminophen 325 MG Tablet 650 MG PO ×3 (10:31→22:20)
--- NOTE | 2024-05-30 13:15 | PCM.PN.SRG ---
Subjective Subjective The patient had some bleeding overnight from her IGGY and she was also feeling lightheaded. She reports that this morning she was feeling much better and she was able to get up to the bathroom herself without dizziness or lightheadedness. Objective Data Objective Data Vital Signs: Vital Signs Temp Pulse Resp BP Pulse Ox O2 Del Method O2 Flow Rate 98.3 F 52 L 16 118/49 L 100 Nasal Cannula 2 05/30/24 08:06 05/30/24 10:26 05/30/24 08:06 05/30/24 08:06 05/30/24 08:06 05/30/24 08:06 05/30/24 08:06 Oxygen Flow Rate (L/min) 2 Oxygen Delivery Method Nasal Cannula Weight: 272 lb 11.389 oz Body Mass Index (BMI) 42.7 Intake & Output: Intake and Output for Last 24 Hours 05/28/24 05/29/24 05/30/24 23:59 23:59 23:59 Intake Total 2135 / 2310 1475 / 1475 Output Total 155 / 320 665 / 665 Balance 1979 / 1989 810 / 810 Lab / Micro Data 05/30/24 06:07 05/30/24 06:07 Labs: Laboratory Results - last 24 hr 05/29/24 20:19: Hgb 10.5 L, Hct 33.2 L, Blood Type A POSITIVE, Antibody Screen NEGATIVE 05/30/24 06:07: WBC 12.9 H, RBC 2.92 L, Hgb 9.3 L, Hct 29.3 L, MCV 100.3 H, MCH 31.8, MCHC 31.7 L, RDW Std Deviation 49.1 H, RDW Coeff of Hector 13.3, Plt Count 260, MPV 10.6, Immature Gran % (Auto) 0.500, Neut % (Auto) 80.0 H, Lymph % (Auto) 10.8 L, Citrus % (Auto) 8.5, Eos % (Auto) 0.0, Baso % (Auto) 0.2, Absolute Neuts (auto) 10.4 H, Absolute Lymphs (auto) 1.39, Nucleated RBC % 0, Sodium 138, Potassium 4.6, Chloride 111 H, Carbon Dioxide 21.0, Anion Gap 6, BUN 38 H, Creatinine 1.31 H, Estim Creat Clear Calc 45.96, Est GFR (MDRD) Af Amer 50 L, Est GFR (MDRD) Non-Af 41 L, BUN/Creatinine Ratio 29.0 H, Glucose 166 H, Calcium 9.5 Physical Exam Const oriented x3 and no apparent distress Resp normal respiratory effort GI soft to palpation and non-tender Assessment & Plan Assessment/Plan (1) Lobular breast cancer: PLAN: The patient had some bleeding likely axillary. Her hemoglobin was 10.5 yesterday and dropped to 9.5 today. Her output is decreasing. Repeat hemoglobin in the morning. Her creatinine also slightly elevated on continued IV fluids and she is tolerating a regular diet. If her labs improved tomorrow and IGGY output continues to decrease I will discharge her home tomorrow. Clif Mena MD Pager: [facility] [address] [place] [address], [address] [place] [phone] Office:
--- NOTE | 2024-05-30 15:35 | CASEMGMT ---
Met with patient to complete DEL CASTILLO form. [employer] CAST[employer]O form explained to patient who voiced understanding and signed form. Original form placed in pt?s chart and copy provided to patient. Yolie Roth, Discharge Planning Asst
[2024-05-30] MEDS: Atorvastatin Calcium 20 MG Tablet PO (20:45)
[2024-05-31] MEDS: Levothyroxine 75 MCG Tablet PO (05:56)
[2024-05-31] MEDS: 0.9% Normal Saline (1000mL) 1,000 ML 100 ML IV (05:56)
[2024-05-31 05:57] VITALS: BP 120/48; PULSE 64; RESP 16; TEMP 36.6; O2SAT 98
[2024-05-31 06:14] LABS: Absolute Lymphocyte Count 2.86 X10^3/uL (0.83-4.51); Absolute Neutrophil Count 7.3 X10^3/uL (2.0-7.7); Basophil# 0.04 X10^3/uL; Basophil% 0.4 % (0-1); Eosinophil# 0.12 X10^3/uL; Eosinophils% 1.1 % (0-5); Hematocrit 26.9 % (37-47); Hemoglobin 8.5 g/dL (12.0-15.0); Lymphocyte # 2.86 X10^3/ul (0.83-4.51); Lymphocyte % 25.4 % (19-41); Mean Corp Hgb Conc 31.6 g/dL (32-36); Mean Corpuscular Hgb 32.1 pg (27.0-32.0); Mean Corpuscular Volume 101.5 fL (81-99); Monocyte# 0.85 X10^3/uL; Monocyte% 7.6 % (0-10); NRBC Flagged by Analyzer 0 % (0-5); Neutrophil # 7.32 X10^3/uL (2.7-7.7); Platelet Count 224 K/mm3 (150-450); RBC Distribution Width CV 13.5 % (11.6-14.6); Red Blood Count 2.65 M/mm3 (4.2-5.4); White Blood Count 11.3 K/mm3 (4.4-11.0)
[2024-05-31 09:44] LABS: Anion Gap 5 (5-15); BUN 31 mg/dL (7-18); BUN/Creat Ratio 28.7 RATIO (10-20); Calcium,Total 9.8 mg/dL (8.5-10.1); Chloride 115 mmol/L (98-107); Creatinine, Serum 1.08 mg/dL (0.55-1.02); EST Glomerular Filtration Rate 52 mL/min (>60); Est Glom Filt Rate - Afr Amer 63 mL/min (>60); Estimated Creatinine Clearance 55.75 ml/min; Glucose 115 mg/dL (74-106); Potassium 4.2 mmol/L (3.5-5.1); Sodium Level 140 mmol/L (136-145)
[2024-05-31] MEDS: metFORMIN HCl 1,000 MG Tablet 1000 MG PO (10:14)
[2024-05-31 10:15] VITALS: BP 120/48; PULSE 64
[2024-05-31] MEDS: Metoprolol Tartrate 25 MG Tablet PO ×2 (10:15→22:51)
[2024-05-31] MEDS: amLODIPine 5 MG Tablet PO (10:16)
--- NOTE | 2024-05-31 11:50 | CASEMGMT ---
JOSEPH CM into pt room, pt sitting up in bed in no distress. Pt states she lives with her dtr and 5 teenagers. States she has assistance at home if needed. Pt has a cane, FWW and w/c. She lives in a two story home but stays on main level. There are 3 steps to enter with bilat rails. Pt sleeps in lift chair. Pt has been educated on IGGY drain and she feels comfortable with this for homegoing. Pt denies any needs.
[2024-05-31 15:25] VITALS: BP 151/54; PULSE 63; RESP 18; TEMP 37.3; O2SAT 96
[2024-05-31 15:28] LABS: Hematocrit 26.3 % (37-47); Hemoglobin 8.2 g/dL (12.0-15.0)
--- NOTE | 2024-05-31 15:46 | PN.SURG_ITS ---
Subjective Subjective The patient is still having some ongoing dark bleeding from her IGGY Objective Data Objective Data Vital Signs: Vital Signs Temp Pulse Resp BP Pulse Ox O2 Del Method O2 Flow Rate 99.1 F 63 18 151/54 H 96 Room Air 2 05/31/24 15:25 05/31/24 15:25 05/31/24 15:25 05/31/24 15:25 05/31/24 15:25 05/31/24 15:25 05/31/24 07:32 Oxygen Flow Rate (L/min) 2 Oxygen Delivery Method Room Air Weight: 272 lb 11.389 oz Body Mass Index (BMI) 42.7 Intake & Output: Intake and Output for Last 24 Hours 05/29/24 05/30/24 05/31/24 23:59 23:59 23:59 Intake Total 2135 / 2310 3075 / 3075 1300 / 1300 Output Total 155 / 320 1395 / 1395 90 / 90 Balance 1979 / 1989 1680 / 1680 1210 / 1210 Lab / Micro Data 05/31/24 15:12 05/31/24 05:41 Labs: Laboratory Results - last 24 hr 05/31/24 05:41: WBC 11.3 H, RBC 2.65 L, Hgb 8.5 L, Hct 26.9 L, MCV 101.5 H, MCH 32.1 H, MCHC 31.6 L, RDW Std Deviation 50.0 H, RDW Coeff of Hector 13.5, Plt Count 224, MPV 11.0, Immature Gran % (Auto) 0.500, Neut % (Auto) 65.0, Lymph % (Auto) 25.4, Starke % (Auto) 7.6, Eos % (Auto) 1.1, Baso % (Auto) 0.4, Absolute Neuts (auto) 7.3, Absolute Lymphs (auto) 2.86, Nucleated RBC % 0, Sodium 140, Potassium 4.2, Chloride 115 H, Carbon Dioxide 20.0 L, Anion Gap 5, BUN 31 H, C reatinine 1.08 H, Estim Creat Clear Calc 55.75, Est GFR (MDRD) Af Amer 63, Est GFR (MDRD) Non-Af 52 L, BUN/Creatinine Ratio 28.7 H, Glucose 115 H, Calcium 9.8 05/31/24 15:12: Hgb 8.2 L, Hct 26.3 L Physical Exam Const oriented x3 and no apparent distress Resp normal respiratory effort Cardio regular rate and regular rhythm Assessment & Plan Assessment/Plan (1) Lobular breast cancer: PLAN: Patient had left mastectomy and sentinel lymph node biopsy. She is still having drainage from her IGGY and it is fairly copious and dark red. Her hemoglobin dropped from 9 5-8 5 overnight and I repeated an H&H this afternoon which came back at 8.2. Because of the amount of drainage and the fact that she has to go back on Plavix I would like to keep her 1 more night for observation. If the ongoing bleeding continues I may take her back for surgery and evacuation of hematoma tomorrow. Patient is tolerating regular diet and pain is well- controlled. She is hemodynamically stable. She is not having any more lightheadedness or dizziness. She is able to ambulate. Clif Mena MD Pager: [facility] [address] [place] [address], [address] [place] [address] Office:
[2024-05-31] MEDS: 0.9% Normal Saline (1000mL) 1,000 ML 40 ML IV (19:07)
[2024-05-31 22:50] VITALS: BP 136/49; PULSE 65; RESP 19; TEMP 37.3; O2SAT 100
[2024-05-31 22:51] VITALS: BP 136/49; PULSE 65
[2024-05-31] MEDS: Atorvastatin Calcium 20 MG Tablet PO (22:51)
[2024-05-31 23:30] VITALS: O2SAT 98
[2024-06-01 04:47] VITALS: BP 138/52; PULSE 59; RESP 16; TEMP 37.2; O2SAT 99
[2024-06-01] MEDS: Levothyroxine 75 MCG Tablet PO (05:46)
--- NOTE | 2024-06-01 06:40 | PN.SURG_ITS ---
Subjective Subjective Patient is comfortable with no complaints overnight Objective Data Objective Data Vital Signs: Vital Signs Temp Pulse Resp BP Pulse Ox O2 Del Method O2 Flow Rate 99.0 F 59 L 16 138/52 H 99 Nasal Cannula 2 06/01/24 04:47 06/01/24 04:47 06/01/24 04:47 06/01/24 04:47 06/01/24 04:47 06/01/24 04:47 06/01/24 04:47 Oxygen Flow Rate (L/min) 2 Oxygen Delivery Method Nasal Cannula Weight: 272 lb 11.389 oz Body Mass Index (BMI) 42.7 Intake & Output: Intake and Output for Last 24 Hours 05/30/24 05/31/24 06/01/24 23:59 23:59 23:59 Intake Total 3075 / 3075 2300.00 / 2300.00 1000 / 1000 Output Total 1395 / 1395 179 / 179 25 / Balance 1680 / 1680 2121.00 / 2121.00 975 / 975 Lab / Micro Data 05/31/24 15:12 05/31/24 05:41 Labs: Laboratory Results - last 24 hr 05/31/24 05:41: Sodium 140, Potassium 4.2, Chloride 115 H, Carbon Dioxide 20.0 L , Anion Gap 5, BUN 31 H, Creatinine 1.08 H, Estim Creat Clear Calc 55.75, Est GFR (MDRD) Af Amer 63, Est GFR (MDRD) Non-Af 52 L, BUN/Creatinine Ratio 28.7 H, Glucose 115 H, Calcium 9.8 05/31/24 15:12: Hgb 8.2 L, Hct 26.3 L Physical Exam Const oriented x3 and no apparent distress Resp normal respiratory effort GI soft to palpation and non-tender Assessment & Plan Assessment/Plan (1) Lobular breast cancer: PLAN: Patient had ongoing bleeding yesterday and her hemoglobin did slightly decreased with the afternoon H&H. Overnight the drain only put out 55 cc. She does have ecchymosis throughout the area around the lateral incision. I am still holding Plavix. Patient is very anxious to go home. If her hemoglobin is stable this morning I will let her go home with a drain in place and follow-up with her this week. If the hemoglobin continues to decrease I will take her back for exploration. Clif Mena MD Pager: [facility] [address] [place] [address], [facility] [address] [place] [address] Office:
[2024-06-01 06:55] LABS: Absolute Lymphocyte Count 2.89 X10^3/uL (0.83-4.51); Absolute Neutrophil Count 6.4 X10^3/uL (2.0-7.7); Basophil# 0.05 X10^3/uL; Basophil% 0.5 % (0-1); Eosinophil# 0.25 X10^3/uL; Eosinophils% 2.4 % (0-5); Hematocrit 25.7 % (37-47); Hemoglobin 8.1 g/dL (12.0-15.0); Lymphocyte # 2.89 X10^3/ul (0.83-4.51); Lymphocyte % 27.7 % (19-41); Mean Corp Hgb Conc 31.5 g/dL (32-36); Mean Corpuscular Hgb 32.1 pg (27.0-32.0); Mean Platelet Vol. 11.3 fl (6.2-12.0); Monocyte# 0.76 X10^3/uL; Monocyte% 7.3 % (0-10); NRBC Flagged by Analyzer 0 % (0-5); Neutrophil # 6.41 X10^3/uL (2.7-7.7); Neutrophil % 61.5 % (47-70); Platelet Count 221 K/mm3 (150-450); RBC Distribution Width CV 13.5 % (11.6-14.6); RBC Distribution Width SD 50.6 fl (35.1-43.9); Red Blood Count 2.52 M/mm3 (4.2-5.4); White Blood Count 10.4 K/mm3 (4.4-11.0)
--- NOTE | 2024-06-01 06:55 | PCM.DC.SUM ---
Providers Date of Admission: 05/29/24 Primary Care Physician: Dr. Caden Lake MD Reason For Visit: BREAST CANCER Diagnosis Discharge Diagnosis (1) Lobular breast cancer: Status: Acute Code(s): C50.919 - Malignant neoplasm of unspecified site of unspecified female breast Plan: Patient had ongoing bleeding yesterday and her hemoglobin did slightly decreased with the afternoon H&H. Overnight the drain only put out 55 cc. She does have ecchymosis throughout the area around the lateral incision. I am still holding Plavix. Patient is very anxious to go home. If her hemoglobin is stable this morning I will let her go home with a drain in place and follow-up with her this week. If the hemoglobin continues to decrease I will take her back for exploration. Clif Mena MD Pager: [facility] [address] [place] [address], [address] [place] [address] Office: Medications at Discharge Home Medications atorvastatin 20 mg tablet 20 mg PO DAILY 11/09/15 cholecalciferol (vitamin D3) 25 mcg (1,000 unit) tablet (Vitamin D3) 1,000 unit PO MOTUWETHSA 11/09/15 clopidogrel 75 mg tablet 75 mg PO DAILY 11/09/15 levothyroxine 75 mcg tablet (Levoxyl) 75 mcg PO DAILY 11/09/15 metoprolol tartrate 25 mg tablet 25 mg PO BID #60 TABLETS 11/20/15 amlodipine 5 mg tablet 5 mg PO DAILY 10/10/16 cinacalcet 90 mg tablet 90 mg PO DAILY 03/27/24 multivitamin 1 tab PO DAILY 03/27/24 metformin 1,000 mg tablet 1,000 mg PO DAILY 05/15/24 Hospital Course Summary of Care Provided Hospital Course: Patient was admitted following left mastectomy and sentinel lymph node biopsy. She continued to have ongoing oozing from her drains with anemia and so she was kept in the hospital until hemoglobin stabilized and then sent home with drain. Weight / BMI Weight Weight: 272 lb 11.389 oz Body Mass Index (BMI) 42.7 ABG / Lab / Microbiology Data 06/01/24 05:50 05/31/24 05:41 Laboratory: Laboratory Results - last 24 hr 05/31/24 05:41: Sodium 140, Potassium 4.2, Chloride 115 H, Carbon Dioxide 20.0 L, Anion Gap 5, BUN 31 H, Creatinine 1.08 H, Estim Creat Clear Calc 55.75, Est GFR (MDRD) Af Amer 63, Est GFR (MDRD) Non-Af 52 L, BUN/Creatinine Ratio 28.7 H, Glucose 115 H, Calcium 9.8 05/31/24 15:12: Hgb 8.2 L, Hct 26.3 L D/C Instructions Discharge Diet: No restrictions Discharge Activity: May Not Shower (Do not shower with drain in place, sponge bathe only) Lifting Restrictions: 10 lbs for 4 weeks Additional Activity Instructions: Empty drain when half full and record output, strip the drain 3 times per day Call your doctor if your incision/area has: Sudden Increased Bleeding, Increased Pain/ Swelling, Increased Redness, Foul Smelling Discharge and Swelling at the incision site Call your doctor if you observe: Fever of 101 or Higher Cleanse incision/area with: Soap & Water Drain: Suction Additional Dressing/Incision Instructions: Resume Plavix Monday Pending Tests Upon Discharge: Blood draw the day of follow up appt at the lab before appointment Please Follow Up With: Clif Mena MD When: Follow up this week, call for appt [phone], Call if increase in bleeding or pain Meaningful Use Info Meaningful Use Meaningful Use Diagnoses (Choose all that apply): None applicable Ischemic Stroke Statin Dosing Therapy Reference: STATIN DOSE THERAPY REFERENCE: * Patients > 75 years receive moderate or high dose statin therapy. * Patients 75 years or YOUNGER should receive HIGH intensity statin dose unless contraindicated. You will be required to document reason for non-treatment if statin daily dose does not meet guidelines. HIGH DOSE STATIN THERAPY DAILY Atorvastatin > than or = to 40 mg Rosuvastatin > than or = to 20 mg Amlodipine + Atorvastatin > than or = to 2.5/40 mg Ezetimibe + Simvastatin 10/80 mg Simvastatin 80mg Discharge Plan Admission Admit Date/Time: 05/29/24 12:23 Attending Provider: Clif Mena Primary Care Provider: Caden Lake Discharge Orders/Prescriptions Prescriptions: Continued cinacalcet 90 mg tablet 90 mg PO DAILY multivitamin Tablet 1 tab PO DAILY atorvastatin 20 MG tablet 20 mg PO DAILY Patient Comments: CHOLESTEROL levothyroxine [Levoxyl] 75 MCG tablet 75 mcg PO DAILY Patient Comments: THYROID cholecalciferol (vitamin D3) [Vitamin D3] 1,000 UNIT tablet 1,000 unit PO MOTUWETHSA Patient Comments: SUPPLEMENT metoprolol tartrate 25 MG tablet 25 mg PO BID Qty: 60 0RF Patient Comments: blood pressure/heart amlodipine 5 MG tablet 5 mg PO DAILY Patient Comments: BP metformin 1,000 MG tablet 1,000 mg PO DAILY Patient Comments: diabetes Held clopidogrel 75 MG tablet 75 mg PO DAILY Hold Instructions: Resume on 06/03/24. Patient Comments: BLOOD THINNER.WAS TOLD TO STOP FOR SURGERY Other Ambulatory Orders: 12 Lead EKG (Routine) Timeframe: [id number] Location: None Selected Ordered By: Dr. Deric Chaidez CBC W/Diff, Automated (Routine) Timeframe: 5 Days Facility: [facility] - Location: Laboratory Ordered By: Dr. Clif Mena Referrals / Follow Up: Caden Lake MD [Primary Care Provider] - Disposition Disposition (needs filled in before D/C Order can be placed): Home, Self Care
[2024-06-01 07:15] LABS: Anion Gap 4 (5-15); BUN 24 mg/dL (7-18); BUN/Creat Ratio 26.3 RATIO (10-20); Calcium,Total 9.5 mg/dL (8.5-10.1); Chloride 114 mmol/L (98-107); Creatinine, Serum 0.91 mg/dL (0.55-1.02); EST Glomerular Filtration Rate 63 mL/min (>60); Est Glom Filt Rate - Afr Amer 76 mL/min (>60); Estimated Creatinine Clearance 66.16 ml/min; Glucose 107 mg/dL (74-106); Potassium 4.2 mmol/L (3.5-5.1); Sodium Level 141 mmol/L (136-145)
[2024-06-01 08:00] VITALS: BP 131/55; PULSE 60; RESP 18; TEMP 36.7; O2SAT 98
[2024-06-01] MEDS: metFORMIN HCl 1,000 MG Tablet 1000 MG PO (08:21)
[2024-06-01 08:22] VITALS: PULSE 66
[2024-06-01] MEDS: Metoprolol Tartrate 25 MG Tablet PO (08:22)
[2024-06-01] MEDS: Cinacalcet HCl 30 MG Tablet 90 MG PO (08:22)
[2024-06-01] MEDS: amLODIPine 5 MG Tablet PO (08:22)
== END 2024-06-01 10:34 | disposition home or self-care (01) ==
LOC: SDC 15:25 → MS3 15:25
PROVIDERS: Anesthesiology; Admitting Provider Surgery; PCP Family Medicine; Referring Provider Surgery; Visit Provider Surgery
PROC: (CPT 19301; principal; 2024-05-29 09:45)
DX: C50.412 Malignant neoplasm of upper-outer quadrant of left female breast (principal); C50.512 Malignant neoplasm of lower-outer quadrant of left female breast; E11.9 Type 2 diabetes mellitus without complications; D64.9 Anemia, unspecified; I10 Essential (primary) hypertension; Z79.84 Long term (current) use of oral hypoglycemic drugs; E03.9 Hypothyroidism, unspecified; Z79.899 Other long term (current) drug therapy; Z79.890 Hormone replacement therapy; G47.30 Sleep apnea, unspecified
CPT/HCPCS: 19303; 38525; 00400; 36415; 38792; 80048; 82962; 83036; 84443; 85014; 85018; 85025; 85027; 86850; 86900; 86901; 88305; 88309; 88331; 88332; 88341; 88342; 93005; 96360; 96361; 99221; A4648; A9541; J7030; J7120; G0378; J2405; J3490; Q9968

== ENCOUNTER → 2024-06-04 | Outpatient (CLI) | payer MEDICARE, SELFPAY ==
[2024-06-04 13:18] LABS: Absolute Lymphocyte Count 2.61 X10^3/uL (0.83-4.51); Absolute Neutrophil Count 8.9 X10^3/uL (2.0-7.7); Basophil# 0.05 X10^3/uL; Basophil% 0.4 % (0-1); Eosinophil# 0.48 X10^3/uL; Eosinophils% 3.7 % (0-5); Hematocrit 31.4 % (37-47); Lymphocyte # 2.61 X10^3/ul (0.83-4.51); Lymphocyte % 20.4 % (19-41); Mean Corp Hgb Conc 31.8 g/dL (32-36); Mean Corpuscular Hgb 32.5 pg (27.0-32.0); Mean Corpuscular Volume 101.9 fL (81-99); Mean Platelet Vol. 9.7 fl (6.2-12.0); Monocyte# 0.69 X10^3/uL; Monocyte% 5.4 % (0-10); NRBC Flagged by Analyzer 0.5 % (0-5); Neutrophil # 8.91 X10^3/uL (2.7-7.7); Neutrophil % 69.5 % (47-70); Platelet Count 385 K/mm3 (150-450); RBC Distribution Width CV 14.1 % (11.6-14.6); Red Blood Count 3.08 M/mm3 (4.2-5.4); White Blood Count 12.8 K/mm3 (4.4-11.0)
== END | disposition home or self-care (01) ==
LOC: PAVLAB 13:01
PROVIDERS: PCP Family Medicine; Referring Provider Surgery; Visit Provider Surgery
DX: C50.919 Malignant neoplasm of unspecified site of unspecified female breast (principal)
CPT/HCPCS: 36415; 85025

== ENCOUNTER → 2024-06-10 | Outpatient (CLI) | payer MEDICARE, SELFPAY ==
[2024-06-10 09:41] LABS: Hematocrit 33.5 % (37-47); Hemoglobin 10.3 g/dL (12.0-15.0); Mean Corp Hgb Conc 30.7 g/dL (32-36); Mean Corpuscular Hgb 31.4 pg (27.0-32.0); Mean Corpuscular Volume 102.1 fL (81-99); Mean Platelet Vol. 9.1 fl (6.2-12.0); Platelet Count 352 K/mm3 (150-450); RBC Distribution Width CV 14.8 % (11.6-14.6); Red Blood Count 3.28 M/mm3 (4.2-5.4); White Blood Count 13.5 K/mm3 (4.4-11.0)
== END | disposition home or self-care (01) ==
PROVIDERS: PCP Family Medicine; Referring Provider Surgery; Visit Provider Surgery
DX: C50.919 Malignant neoplasm of unspecified site of unspecified female breast (principal)
CPT/HCPCS: 36415; 85027

== ENCOUNTER 2024-06-12 06:51 | Day surgery (SDC) | payer MEDICARE, SELFPAY ==
[2024-06-12] VITALS (7 sets, daily range): BP systolic 124–135; BP diastolic 46–75; PULSE 67–75; RESP 16; TEMP 36.6–36.7; O2SAT 92–98; BMI 42.1
--- NOTE | 2024-06-12 06:56 | PCM.HP.STD ---
HPI - General HPI Narrative LYSSA THORNE, is a 79 F who presents for evacuation of hematoma. The patient recently underwent left mastectomy and sentinel lymph node biopsy. She had a large amount of output from her drain postoperatively which did decrease and then increased. [facility] Medical History (Updated 06/12/24 @ 06:[address] Clif Mena MD) Metastatic malignant neoplasm to breast Cardiology follow-up encounter Post-menopausal Cancer Wears glasses Ambulates with cane Arthritis CPAP (continuous positive airway pressure) dependence Sleep apnea Non-smoker History of stress test History of echocardiogram History of atrial fibrillation History of kidney stones Lobular breast cancer Diabetes Thyroid disease HTN (hypertension) Heart murmur TIA (transient ischemic attack) Home Medications ?Medication ?Instructions ?Recorded ?Last Taken ?Type atorvastatin 20 mg tablet 20 mg PO DAILY 11/09/15 05/28/24 History cholecalciferol (vitamin D3) 25 1,000 unit PO MOTUWETHSA 11/09/15 05/28/24 History mcg (1,000 unit) tablet (Vitamin D3) clopidogrel 75 mg tablet 75 mg PO DAILY 11/09/15 05/23/24 History levothyroxine 75 mcg tablet 75 mcg PO DAILY 11/09/15 05/29/24 History (Levoxyl) metoprolol tartrate 25 mg tablet 25 mg PO BID #60 TABLETS 11/20/15 05/29/24 Rx amlodipine 5 mg tablet 5 mg PO DAILY 10/10/16 05/29/24 History cinacalcet 90 mg tablet 90 mg PO DAILY 03/27/24 05/28/24 History multivitamin 1 tab PO DAILY 03/27/24 05/28/24 History metformin 1,000 mg tablet 1,000 mg PO DAILY 05/15/24 05/28/24 History Allergy/AdvReac Type Severity Reaction Status Date / Time latex Allergy Unknown Verified 06/11/24 13:06 Sulfa (Sulfonamide Allergy Unknown Verified 06/11/24 13:06 Antibiotics) Family History Brother Diabetes CVA (cerebral vascular accident) Father Heart disease Hypertension Mother Heart disease Hypertension Surgical History (Updated 06/11/24 @ 13:11 by Rashida Benavides) History of left mastectomy History of appendectomy History of cystoscopy History of cataract surgery History of knee replacement Social History Smoking Status: Never smoker alcohol intake: current alcohol intake frequency: holidays/special occasions only Physical Exam Const oriented x3 and no apparent distress Resp normal respiratory effort GI soft to palpation and non-tender Assessment & Plan Assessment/Plan (1) Postoperative hematoma of breast: (2) Postoperative hematoma: PLAN: Plan Patient had mastectomy and had a large amount of drainage from the IGGY drain. When she followed up a week later he was decreasing and her hemoglobin was stable. We resumed Plavix which increased the drainage amount and the hematoma size. I discussed performing evacuation of her hematoma in the OR. I discussed the risks of bleeding and infection. I will try to isolate the bleeder and evacuate the hematoma and place a new drain. Clif Mena MD Pager: [facility] [address] [place] [address], [address] [place] [address] Office:
--- NOTE | 2024-06-12 06:59 | PCM.PRE.AN2 ---
ASA Classification* ASA Classification ASA Classification: 2 Assessment & Plan Anesthesia* Anesthesia Assessment Anesthesia Assessment: Discussed sedation and/or anesthesia options, risks, benefits, and alternatives with patient/parents/legal guardian/POA. Questions invited. The patient/parents/legal guardian/POA seems to understand and agrees to proceed with anesthesia plan. Reviewed the physical assessment, medical history, allergy history and patient home medications list prior to surgery/procedure/anesthetic and documented any changes. Performed airway and anesthesia risk assessments. Anesthesia Type Anesthesia Type: General Anesthesia Focused Assessment* Airway Assessment Mouth opens: >3 cm Mallampati Score: II Focused Labs Anesthesia Preop lab: CBC WBC 13.5 K/mm3 (4.4-11.0) H 06/10/24 09:30 RBC 3.28 M/mm3 (4.2-5.4) L 06/10/24 09:30 Hgb 10.3 g/dL (12.0-15.0) L 06/10/24 09:30 Hct 33.5 % (37-47) L 06/10/24 09:30 Plt Count 352 K/mm3 (150-450) 06/10/24 09:30 CHEMISTRY Potassium 4.2 mmol/L (3.5-5.1) 06/01/24 05:50 Sodium 141 mmol/L (136-145) 06/01/24 05:50 Magnesium 1.9 mg/dL (1.6-2.6) 10/13/21 06:05 Phosphorus 1.8 mg/dL (2.5-4.9) L 10/06/21 06:50 BUN 24 mg/dL (7-18) H 06/01/24 05:50 Creatinine 0.91 mg/dL (0.55-1.02) 06/01/24 05:50 Glucose 107 mg/dL (74-106) H 06/01/24 05:50 POC Glucose 123 mg/dL (74-106) H 05/29/24 08:02 TSH 2.600 uIU/mL (0.358-3.740) 05/16/24 13:38 COAG Pre-Assessment Diagnosis/Proposed Procedure Planned Operative Procedure(s): (L) Exploratory of left breast & axilla wound Anesthesia History Anesthesia History - radiation oncology therapist: Anesthesia History - radiation oncology therapist Hx Hospitalization No 06/11/24 13:07 Any Problems With Anesthesia No 06/11/24 13:07 Cholinesterase deficiency No 06/11/24 13:07 You/Your Family Experience No 06/11/24 13:07 fever (hyperthermia) with Relationship Recent Exposure to Contagious No 05/29/24 08:13 Disease Does patient have nerve No 06/11/24 13:07 stimulator Patient instructed to have device shut off --Does patient have Pacemaker or ICD? When Was Last Pacemaker Check QUESTION #4 FULL TEXT: You/Your Family Experience fever (hyperthermia) with Anesthesia Last Oral Intake Last Oral intake: Last Oral Intake NPO since Meds taken in AM with sips of water? Meds patient instructed to take am of surgery PONV PONV - radiation oncology therapist: PONV - radiation oncology therapist Female Yes 06/11/24 13:07 HX of Motion Sickness No 06/11/24 13:07 HX of N/V After Surgery No 06/11/24 13:07 Non-Smoker Yes 06/11/24 13:07 Duration of Surgery greater No 06/11/24 13:07 than 60 minutes Number of Risk Factors 2 06/11/24 13:07 PONV Score Moderate Risk 06/11/24 13:07 Height & Weight Height & Weight: Anesthesia: Height & Weight Height 5 ft 7 in 06/10/24 09:47 Respiratory Assessment Respiratory Assessment - radiation oncology therapist: Respiratory Tract Infection Hx - radiation oncology therapist Hx Respiratory Tract Infection No 06/11/24 13:07 STOP Sleep Apnea STOP Sleep Apnea - radiation oncology therapist: STOP Sleep Apnea - radiation oncology therapist Hx Hypertension Yes: CONTROLLED WITH MED 06/11/24 13:07 Hx Sleep Apnea Yes 06/11/24 13:07 CPAP Yes 06/11/24 13:07 BIPAP No 06/11/24 13:07 Do you snore loudly (louder than talking or can be heard Do you often feel tired/ fatigued/ sleepy during daytime? Has anyone observed you stop breathing during sleep? STOP Results Positive 06/11/24 13:07 QUESTION #5 FULL TEXT : Do you snore loudly (louder than talking or can be heard through closed doors)? Tobacco Use History Tobacco Use History - radiation oncology therapist: Tobacco Use History - radiation oncology therapist Tobacco Use Smoking Status Never smoker 06/11/24 13:07 Hx Tobacco Use No 06/11/24 13:07 Years Smoking Packs Smoked per Day Smoking Cessation Date was within the last 15 years Hx Smoking Cessation Date Hx Smoking Cessation Counseling Hematologic Medial History Hematologic Hx - radiation oncology therapist: Hematologic Medical Hx - green feed attendant Hx of Blood Transfusion No 06/11/24 13:07 Hx of Transfusion in last 3 No 06/11/24 13:07 Months Date of Last Transfusion (if within last 3 months) Ever experience any problems No 06/11/24 13:07 with transfusion(s)? Specify any problems Hx of Preganancy in last 3 N/A 06/11/24 13:07 Months Nurse Filling Out Transfusion NBUCHER 06/11/24 13:07 & Questions: Date: 06/11/24 06/11/24 13:07 Time: 13:06/11/24 13:07 Patient unable to answer at this time (ie. confused, unrespo /Reproduction History /Reproductive History - radiation oncology therapist: /Reproductive Hx- radiation oncology therapist Hx Now Gestational Age (in weeks): EDC: Hx Hx Para Hx Section SAB No 06/11/24 13:07 Active Medications Active Medications: Current Medications Generic Name Dose Route Start Last Admin Trade Name Freq PRN Reason Stop Dose Admin Lactated Ringer's 1,000 mls @ 15 mls/hr 06/12/24 07:00 IV .Q48H SHARAN PFSH Medical History Metastatic malignant neoplasm to breast Cardiology follow-up encounter Post-menopausal Cancer Wears glasses Ambulates with cane Arthritis CPAP (continuous positive airway pressure) dependence Sleep apnea Non-smoker History of stress test History of echocardiogram History of atrial fibrillation History of kidney stones Lobular breast cancer Diabetes Thyroid disease HTN (hypertension) Heart murmur TIA (transient ischemic attack) Home Medications ?Medication ?Instructions ?Recorded ?Last Taken ?Type atorvastatin 20 mg tablet 20 mg PO DAILY 11/09/15 05/28/24 History cholecalciferol (vitamin D3) 25 1,000 unit PO MOTUWETHSA 11/09/15 05/28/24 History mcg (1,000 unit) tablet (Vitamin D3) clopidogrel 75 mg tablet 75 mg PO DAILY 11/09/15 05/23/24 History levothyroxine 75 mcg tablet 75 mcg PO DAILY 11/09/15 05/29/24 History (Levoxyl) metoprolol tartrate 25 mg tablet 25 mg PO BID #60 TABLETS 11/20/15 05/29/24 Rx amlodipine 5 mg tablet 5 mg PO DAILY 10/10/16 05/29/24 History cinacalcet 90 mg tablet 90 mg PO DAILY 03/27/24 05/28/24 History multivitamin 1 tab PO DAILY 03/27/24 05/28/24 History metformin 1,000 mg tablet 1,000 mg PO DAILY 05/15/24 05/28/24 History Allergy/AdvReac Type Severity Reaction Status Date / Time latex Allergy Unknown Verified 06/11/24 13:06 Sulfa (Sulfonamide Allergy Unknown Verified 06/11/24 13:06 Antibiotics) Family History Brother Diabetes CVA (cerebral vascular accident) Father Heart disease Hypertension Mother Heart disease Hypertension Surgical History History of left mastectomy History of appendectomy History of cystoscopy History of cataract surgery History of knee replacement Social History Smoking Status: Never smoker alcohol intake: current alcohol intake frequency: holidays/special occasions only Review of Systems (Anesthesia) ROS Narrative System reviewed and no additional complaints, except as documented.
[2024-06-12] MEDS: Lactated Ringers 1,000 ML 15 ML IV (07:19)
[2024-06-12] MEDS: Cefazolin 3 GM in 0.9% Normal Saline (100mL Bag) 100 ML IV (07:27)
[2024-06-12 07:53] LABS: Bedside Glucose 127 mg/dL (74-106)
[2024-06-12] MEDS: Bupivacaine Mpf 0.5% 30 ML VIAL (08:00)
--- NOTE | 2024-06-12 08:13 | PCM.POST.ANE ---
Anesthesia: Postop Eval I Current Vital Signs Temperature: 97.8 F Pulse Rate: 70 Blood Pressure: 125/46 Respiratory Rate: 16 Pulse Ox: 97 Oxygen Delivery Method: Room Air Assessment Airway patent: Yes Spontaneous unlabored respirations: Yes Mental status: Awake and Calm nausea: No Vomiting: No Anesthesia Complication: No Fluid Hydration Crystalloid volume administer (ml): 400 Total IV fluid infused: 400 Progress Note Anesthesia document: Postop Eval 1 completed: Yes
--- NOTE | 2024-06-12 08:18 | OP.PCM_ITS ---
Report of Operation Date of Procedure: 06/12/24 Pre-Operative Diagnosis: Postoperative hematoma of the left breast Post-Operative Diagnosis: Same Surgery/Procedure Performed:: Exploration of left mastectomy wound with evacuation of hematoma and replacement of drain Type of Anesthesia: General/Regional Specimen's removed: None Drains: IGGY to bulb suction Description of Procedure: Patient was brought back to the operating room and general anesthesia was induced. The old drain was removed and then the left breast was prepped and draped in usual sterile fashion. The lateral area that was most ecchymotic was selected and reopened using a scalpel. The clot in the subcutaneous space was suctioned. There was no active red bleeding. The area was irrigated and sucti oned dry and inspected. I inspected the axilla and there was no red blood only clot, there is no ecchymosis in the axilla to speak of. There was some bruising and blood clot in the inferior portion at the inferior flap laterally. Heema blast was used to spray all around the cavity and a new drain was placed. It was placed up into the axilla and around the mastectomy cavity. It was sutured to the skin using 3-0 nylon. Next the skin was closed with interrupted 3-0 Vicryl sutures and Dermabond. Drain was placed to bulb suction. Jeffrey wrap was applied as a pressure dressing Admit VTE Documentation VTE Mechan Device Prophylaxis: SCD's
--- NOTE | 2024-06-12 08:21 | EX.PCM.DISCH ---
Discharge Instructions Diet Discharge Diet: Light diet - advance as tolerated Activity Discharge Activity: Return to Normal Activity Lifting Restrictions: 15 lbs Additional Activity Instructions:: OK to raise arm over head at this point Resume Plavix Monday Dressing / Incision Call your doctor if your incision/area has: Continuous Slow Oozing, Sudden Increased Bleeding, Increased Pain/ Swelling, Increased Redness, Foul Smelling Discharge and Swelling at the incision site Cleanse incision/area with: Soap & Water Drain: Suction Additional Dressing/Incision Instructions:: FERDINAND wrap for 2 days, then use for 1 week while awake Follow Up Care Please Follow Up With: Clif Mena MD When: Please call to schedule 1 week follow up appointment. [phone] Test Results: Test results from this visit will be discussed in further detail at your follow-up appointment, if applicable. Discharge Plan Admission Attending Provider: Clif Mena Primary Care Provider: Caden Lake Instructions Print Language: [place] Discharge Orders/Prescriptions Prescriptions: No Action cinacalcet 90 mg tablet 90 mg PO DAILY multivitamin Tablet 1 tab PO DAILY atorvastatin 20 MG tablet 20 mg PO DAILY Patient Comments: CHOLESTEROL clopidogrel 75 MG tablet 75 mg PO DAILY Patient Comments: BLOOD THINNER.WAS TOLD TO STOP FOR SURGERY levothyroxine [Levoxyl] 75 MCG tablet 75 mcg PO DAILY Patient Comments: THYROID cholecalciferol (vitamin D3) [Vitamin D3] 1,000 UNIT tablet 1,000 unit PO MOTUWETHSA Patient Comments: SUPPLEMENT metoprolol tartrate 25 MG tablet 25 mg PO BID Qty: 60 0RF Patient Comments: blood pressure/heart amlodipine 5 MG tablet 5 mg PO DAILY Patient Comments: BP metformin 1,000 MG tablet 1,000 mg PO DAILY Patient Comments: diabetes Referrals / Follow Up: Caden aLke MD [Primary Care Provider] - Disposition Disposition (needs filled in before D/C Order can be placed): Home, Self Care
--- NOTE | 2024-06-12 13:38 | POSTOPAN2_ITS ---
Anesthesia Postop Eval I Sum Postop Eval Completion status Anesthesia document: Postop Eval 1 completed: Yes Anesthesia Postop Eval I Summary Anesthesia Postop Eval I Summary: Anesthesia Postop Eval I: Assessment Summary Airway patent Yes 06/12/24 08:27 [email or web address] Spontaneous unlabored Yes 06/12/24 08:27 [email or web address] respirations Mental status Awake,Calm 06/12/24 08:27 [email or web address] nausea No 06/12/24 08:27 [email or web address] Vomiting No 06/12/24 08:27 [email or web address] Anesthesia Postop Eval I: Fluid Summary Crystalloid volume administer 400 06/12/24 08:27 [email or web address] (ml) Colloids volume administered ( ml) Blood Product volume administered (ml) Total IV fluid infused 400 06/12/24 08:27 [email or web address] Anesthesia Postop Eval I: Summary Notes Anesthesia Complication No 06/12/24 08:27 [email or web address] Anesthesia Complication Comment: Post-operative progress note Anesthesia: Postop Eval II Evaluation Mental status: Awake Pain Level: 0 nausea: No Vomiting: No
--- NOTE | 2024-06-12 13:38 | PCM.POSTANE2 ---
Anesthesia Postop Eval I Sum Postop Eval Completion status Anesthesia document: Postop Eval 1 completed: Yes Anesthesia Postop Eval I Summary Anesthesia Postop Eval I Summary: Anesthesia Postop Eval I: Assessment Summary Airway patent Yes 06/12/24 08:27 INSPECTOR [email or web address] [email or web address] Spontaneous unlabored Yes 06/12/24 08:27 INSPECTOR W[email or web address].GDOTT respirations Mental status Awake,Calm 06/12/24 08:27 INSPECTOR W[email or web address].GDOTT nausea No 06/12/24 08:27 INSPECTOR W[employer]ODU[employer].GDOTT Vomiting No 06/12/24 08:27 INSPECTOR W[employer] [email or web address].GDOTT Anesthesia Postop Eval I: Fluid Summary Crystalloid volume administer 400 06/12/24 08:27 INSPECTOR [employer]ODU[employer].GDOTT (ml) Colloids volume administered ( ml) Blood Product volume administered (ml) Total IV fluid infused 400 06/12/24 08:27 INSPECTOR [employer]ODU[employer].GDOTT Anesthesia Postop Eval I: Summary Notes Anesthesia Complication No 06/12/24 08:27 INSPECTOR [email or web address].GDOTT Anesthesia Complication Comment: Post-operative progress note Anesthesia: Postop Eval II Evaluation Mental status: Awake Pain Level: 0 nausea: No Vomiting: No
== END 2024-06-12 09:30 | disposition home or self-care (01) ==
LOC: SDC 06:52 → AC 06:52
PROVIDERS: PCP Family Medicine; Referring Provider Surgery; Visit Provider Surgery
PROC: (CPT 19020; principal; 2024-06-12 07:15)
DX: L76.82 Other postprocedural complications of skin and subcutaneous tissue (principal); E11.9 Type 2 diabetes mellitus without complications; I10 Essential (primary) hypertension; E07.9 Disorder of thyroid, unspecified; G47.30 Sleep apnea, unspecified; Z85.3 Personal history of malignant neoplasm of breast; Z88.2 Allergy status to sulfonamides; Z78.0 Asymptomatic menopausal state; Z86.73 Personal history of transient ischemic attack (TIA), and cerebral infarction without residual deficits; Z90.12 Acquired absence of left breast and nipple; Z79.890 Hormone replacement therapy; Z79.899 Other long term (current) drug therapy; Z79.84 Long term (current) use of oral hypoglycemic drugs; Z79.02 Long term (current) use of antithrombotics/antiplatelets
CPT/HCPCS: 19020; 00400; 82962; J2405

== ENCOUNTER → 2024-07-08 | Outpatient (CLI) | payer MEDICARE, SELFPAY ==
--- NOTE | 2024-07-08 10:39 | NM_ITS ---
CLINICAL: 79-year-old female with history of primary breast carcinoma. WHOLE BODY 99m Tc MDP RADIONUCLIDE BONE SCINTIGRAPHY COMPARISON: None available FINDINGS: Following the intravenous administration of 25.4 mCi of 99m Tc MDP, whole body bone images reveal: 1. Increased radiotracer concentration is demonstrated in the acromioclavicular, sternoclavicular and glenohumeral compartments of both shoulders, the bilateral ankles, the mid cervical spine posteriorly on the right, the second lumbar vertebra posteriorly on the right. 2. The remaining skeletal structures are scintigraphically unremarkable with normal-appearing renal images and urinary bladder activity identified. Bilateral presumably asymptomatic knee prostheses are defined. Enhanced tracer uptake is noted in the left maxilla and right mandible most consistent with periostitis and/or periodontal disease. NM/Bone Scan Whole Body IMPRESSION: 1. The increase in tracer distribution defined in the bilateral shoulders, ankles bilaterally, the cervical and lumbar spine is commensurate with degenerative arthritis. 2. There is no definitive typical scintigraphic evidence of skeletal metastatic disease on the current examination. Electronically Signed: Jaret Chiu DO at 9:30 EDT ,
== END | disposition home or self-care (01) ==
LOC: NM 10:37
PROVIDERS: PCP Family Medicine; Referring Provider Student in an Organized Health Care Education/Training Program; Visit Provider Student in an Organized Health Care Education/Training Program
DX: C50.912 Malignant neoplasm of unspecified site of left female breast (principal); C77.9 Secondary and unspecified malignant neoplasm of lymph node, unspecified; Z17.0 Estrogen receptor positive status [ER+]
CPT/HCPCS: 78306; A9503

== ENCOUNTER → 2024-07-11 | Outpatient (CLI) | payer MEDICARE, SELFPAY ==
--- NOTE | 2024-07-11 14:19 | CT_ITS ---
EXAM: CT CHEST, ABDOMEN AND PELVIS WITH INTRAVENOUS CONTRAST CLINICAL INDICATION: stage IIIA breast cancer, staging TECHNIQUE: Helically acquired images were obtained of the chest, abdomen and pelvis with intravenous contrast. This CT exam was performed using one or more of the following dose reduction techniques: automated exposure control, adjustment of the mA and/or kV according to patient size, and/or use of iterative reconstruction technique. CONTRAST: Oral and amp; IV Readi-CAT and amp; 100mL [id number] COMPARISON: Whole-body bone scan, 07/08/2024. FINDINGS: CHEST: LUNGS AND PLEURAL SPACES: Tree in bud opacities in the right lower lobe, likely infectious or inflammatory. 2 mm solid noncalcified nodule in the posterior right lower lobe. Granuloma in the periphery of the left lower lobe. No pleural effusion or thickening. No pneumothorax. HEART: Coronary artery calcifications and/or stents and cardiac valvular calcifications. Mild cardiomegaly. No pericardial effusion. MEDIASTINUM: Moderately large mediastinal and right hilar lymph nodes are present, the largest which is precarinal measuring up to approximately 1.3 cm. Esophagus is unremarkable. No hiatal hernia. THYROID: 1 cm left side low-attenuation thyroid nodule. ABDOMEN: LIVER: No significant abnormality. Homogeneous. No focal mass. GALLBLADDER AND BILE DUCTS: Cholelithiasis and/or sludge. No definitive evidence of acute cholecystitis. No intra- or extrahepatic biliary ductal dilation. PANCREAS: No significant abnormality. No focal cystic or solid mass. SPLEEN: Splenic granulomas. Otherwise, the spleen appears normal. ADRENALS: No significant abnormality. No nodules. KIDNEYS AND URETERS: Multiple right renal calyceal and/or parenchymal calcifications without hydronephrosis or ureteral stone. Normal renal size and position. STOMACH AND BOWEL: Colonic diverticulosis without evidence of acute diverticulitis. No stomach or bowel distention. PELVIS: APPENDIX: No evidence of acute appendicitis. BLADDER: No significant abnormality. REPRODUCTIVE: Status post hysterectomy. Apparent left ovary containing a 2 cm cyst. CHEST, ABDOMEN and PELVIS: INTRAPERITONEAL SPACE: No significant abnormality. No ascites or other fluid collection. No free air. BONES/JOINTS: Degenerative changes throughout the visualized axial and appendicular skeletal structures. No suspicious lytic or blastic abnormality. SOFT TISSUES: Postoperative changes in the left breast. Severe rectus diastases. No discrete abdominal or pelvic wall hernia. VASCULATURE: No significant abnormality. Aorta is non-dilated. No aortic dissection. No obvious central pulmonary embolism although this study was not performed with the pulmonary embolism protocol. LYMPH NODES: Multiple small very fatty bilateral axillary lymph nodes are identified. In the deep left axilla, there are at least 2 lymph nodes with relatively thicker cortices, the largest measuring approximately 9 mm. Correlate with operative findings. Lymph node metastasis cannot be excluded. CT/CT Chest, Abd, Pel w/Contrast IMPRESSION: 1. Indeterminate 2 mm noncalcified nodule in the posterior right lower lobe. Additional area of possible infection or inflammation in the right lower lobe. Early metastasis cannot be excluded. 2. Multiple small very fatty bilateral axillary lymph nodes are identified. In the deep left axilla, there are at least 2 lymph nodes with relatively thicker cortices, the largest measuring approximately 9 mm. Correlate with operative findings. Lymph node metastasis cannot be excluded. Postoperative changes in the left breast. 3. 1 cm left side low-attenuation thyroid nodule. ACR White Paper guidelines (Ty HarperK, et al. JACR 2015;12(2):143-50) suggest no follow-up is necessary. 4. Moderately large mediastinal and right hilar lymph nodes are present, the largest which is precarinal measuring up to approximately 1.3 cm. These are nonspecific. 5. Colonic diverticulosis without evidence of acute diverticulitis. 6. Cholelithiasis and/or sludge. No definitive evidence of acute cholecystitis. 7. Multiple right renal calyceal and/or parenchymal calcifications without hydronephrosis or ureteral stone. 8. Status post hysterectomy. Apparent left ovary containing a 2 cm cyst. Correlate with history. ACR White Paper guidelines (Griffith, et. al. JACR 2020;17(2):248-254) suggest no follow-up is necessary. 9. Coronary artery calcifications and/or stents and cardiac valvular calcifications. Mild cardiomegaly. No pericardial effusion. Electronically Signed: Deo Owusu DO at 22:43 EDT ,
== END | disposition home or self-care (01) ==
LOC: CT 14:16
PROVIDERS: PCP Family Medicine; Referring Provider Student in an Organized Health Care Education/Training Program; Visit Provider Student in an Organized Health Care Education/Training Program
DX: C77.9 Secondary and unspecified malignant neoplasm of lymph node, unspecified (principal); C50.912 Malignant neoplasm of unspecified site of left female breast; Z17.0 Estrogen receptor positive status [ER+]
CPT/HCPCS: 71260; 74177; Q9967; A4216

== ENCOUNTER → 2024-08-06 | Outpatient (CLI) | payer MEDICARE, SELFPAY ==
--- NOTE | 2024-08-06 10:30 | BD_ITS ---
STUDY: DUAL ENERGY X-RAY ABSORPTIOMETRY / DXA REASON FOR EXAM: Female, 79 years old. SCREENING TECHNIQUE: Bone Mineral Density (BMD) measurements of lumbar spine and bilateral hips were obtained. COMPARISON: None. FINDINGS: Lumbar Spine (L1-L4): g/cm2 (1.372) / T-score (3.0) / Z-score (5.7) Findings are suggestive of normal bone density with a low fracture risk. Left Femur Total: g/cm2 (0.949) / T-score (0.1) / Z-score (2.2) Left Femoral Neck: g/cm2 (0.708) / T-score (-1.3) / Z-score (1.1) Right Femur Total: g/cm2 (0.980) / T-score (0.3) / Z-score (2.4) Right Femoral Neck: g/cm2 (0.804) / T-score (-0.4) / Z-score (2.0) BD/Dexa Bone Density Study IMPRESSION: The patient is considered osteopenic as outlined below according to World Mick Organization (WHO) criteria with a low fracture risk. Reference Information: The T-score is the number of standard deviations above or below the standard which is normal for young adults at their peak bone mineral density. The World Health Organization (WHO) interprets the T-scores as follows: Above -1 Normal bone density Between -1 and -2.5 Osteopenia Equal to / or below -2.5 Osteoporosis As a practical clinical guideline, osteopenia may be graded as follows: Mild -1 through -1.5 Moderate -1.6 through -2.0 Severe -2.1 through -2.4 The Z-score is the number of standard deviations above or below age-matched controls. A Z-score of less than -1.5 would be considered abnormal. References: 1. NIH Osteoporosis and Related Bone Diseases www osteo.org 2. International Society for Clinical Densitometry www iscd.org 3. National Osteoporosis Foundation www nof.org Electronically Signed: Gustavo Rachel MD at 8:26 EST ,
== END | disposition home or self-care (01) ==
LOC: OPBD 10:07
PROVIDERS: PCP Family Medicine; Referring Provider Internal Medicine Hematology & Oncology; Visit Provider Internal Medicine Hematology & Oncology
DX: Z78.0 Asymptomatic menopausal state (principal)
CPT/HCPCS: 77080